=== PATIENT | male | born 1945 | race Caucasian/White ===

== ENCOUNTER 2017-07-17 21:48 | Emergency (ER) | payer MEDICARE, BC ==
[2017-07-17] MEDS ORDERED: Lactated Ringers 1,000 ML IV SCH (23:00)
[2017-07-17] MEDS ORDERED: HYDROMORPHONE IV PRN (23:00)
[2017-07-17] MEDS ORDERED: HYDROmorphone 0.5 MG/0.5 ML Syringe ONE (23:41)
[2017-07-18] MEDS ORDERED: Sodium Chloride 0.9% 10 ML Syringe FLUSH PRN (00:06)
[2017-07-18] MEDS ORDERED: Iopamidol 612 MG/ML 150 ML Bottle IV SCH (00:15)
[2017-07-18] MEDS ORDERED: Sodium Chloride 0.9% 80 ML IV SCH (00:15)
[2017-07-18] MEDS ORDERED: HYDROmorphone 0.5 MG/0.5 ML Syringe IVPUSH ONE ×2 (00:27→01:23)
--- NOTE | 2017-07-18 00:47 | EDM.PDOC ---
ED HPI GENERAL MEDICAL PROBLEM - General Chief Complaint: Abdominal Pain Stated Complaint: RI SIDE PAIN Time Seen by Provider: 07/17/17 22:35 Source of Information: Reports: Patient, Family History Limitations: Reports: No Limitations - History of Present Illness INITIAL COMMENTS - FREE TEXT/NARRATIVE: Patient was in his usual state of health until onset. Patient complains of RLQ pain for last 24h. Pain started in RLQ, positional, intermittent gradually progressing to more severe and persistent pain at this time. He reports that getting in/out of car exacerbates it, and holding still in certain recumbent positions improves pain. He denies a/n/v, had one loose, non-bloody/non- purulent/non-mucoid bowel movement shortly before ED presentation w/o relief of symptoms. His last meal was 1800 and was well tolerated. He states he could eat now if given food. He denies associated fever/chills or other constitutional symptoms. He describes the pain as sharp, and has not changed character since onset. He denies radiation/migration of pain. He denies flank pain, urgency, dysuria or other irritative voiding symptoms. He denies any pain or mass in his scrotum/testicles. ROS is otherwise non-contributory. Duration: Day(s): (1) Location: Reports: Abdomen (focal RLQ) Quality: Reports: Sharp. Denies: Ache Severity: Moderate Improves with: Reports: Rest. Denies: Eating Worsens with: Reports: Movement. 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(s) Right Pelvic Pain Score (Numeric/FACES): 7 - Related Data Allergies Allergy/AdvReac Type Severity Reaction Status Date / Time atenolol AdvReac Cough Verified 07/17/17 22:14 Home Meds: Home Meds Aspirin [Halfprin] 81 mg PO DAILY 07/17/17 [History] Cholecalciferol (Vitamin D3) [Vitamin D3] 2,000 unit PO DAILY 07/17/17 [History] Hydrochlorothiazide 25 mg PO DAILY 07/17/17 [History] Irbesartan [Avapro] 300 mg PO DAILY 07/17/17 [History] Pravastatin [Pravachol] 40 mg PO DAILY 07/17/17 [History] Past Medical History Cardiovascular History: Reports: High Cholesterol, Hypertension, Prior Cardiac Arrest Other Cardiovascular History: cardiac arrest durning shoulder surgery Musculoskeletal History: Reports: Back Pain, Chronic, Fracture Oncologic (Cancer) History: Reports: Basal Cell Carcinoma - Past Surgical History GI Surgical History: Reports: Colonoscopy Neurological Surgical History: Reports: Spinal Fusion Social & Family History - Tobacco Use Smoking Status *Q: Former Smoker Used Tobacco, but Quit: Yes Month Tobacco Last Used: 25 years ago - Caffeine Use Caffeine Use: Reports: Coffee - Recreational Drug Use Recreational Drug Use: No ED ROS GENERAL - Review of Systems Review Of Systems: See Below Constitutional: Reports: No Symptoms HEENT: Reports: No Symptoms Respiratory: Reports: No Symptoms Cardiovascular: Reports: No Symptoms Endocrine: Reports: No Symptoms GI/Abdominal: Reports: Abdominal Pain. Denies: Anorexia, Black Stool, Bloody Stool, Constipation, Melena, Mucous in Stool, Nausea, Vomiting : Denies: Discharge, Dysuria, Flank Pain, Frequency, Hematuria, Pain, Urgency Musculoskeletal: Reports: No Symptoms Skin: Reports: No Symptoms Neurological: Reports: No Symptoms Psychiatric: Reports: No Symptoms Hematologic/Lymphatic: Reports: No Symptoms Immunologic: Reports: No Symptoms ED EXAM, GI/ABD - Physical Exam Exam: See Below Text/Narrative:: Localized tenderness RLQ @ McBurney's point. Very tender to percussion, rapid palpation (hot kettle tender with slow deep palpation) w/o rebound or guarding. Minimal discomfort w/ jarring bed/heel tap, but very uncomfortable when moving/ changing positions. Negative Rosvig/obturator/psoas signs. Testicles desced bilat, non-tender. No e/o hernia. Exam Limited By: No Limitations General Appearance: Alert, WD/WN, No Apparent Distress. No: Anxious Eyes: Bilateral: Normal Appearance, EOMI Ears: Normal External Exam, Normal Canal, Hearing Grossly Normal Nose: Normal Inspection, Normal Mucosa, No Blood Throat/Mouth: Normal Inspection, Normal Lips, Normal Oropharynx, No Airway Compromise, Other (Mallampati class III, normal thryomental distance, normal mouth opening.) Head: Atraumatic, Normocephalic Neck: Normal Inspection, Supple, Non-Tender, Full Range of Motion Respiratory/Chest: No Respiratory Distress, Lungs Clear, Normal Breath Sounds, No Accessory Muscle Use, Chest Non-Tender Cardiovascular: Normal Peripheral Pulses, Regular Rate, Rhythm, No Edema, No Murmur. No: JVD GI/Abdominal Exam: Soft, No Organomegaly, No Distention, No Abnormal Bruit, No Mass, Abnormal Bowel Sounds (diminished all quadrants), Hernia (? supraumbilical abdominal wall defect). No: Normal Bowel Sounds, Non-Tender (Male) Exam: No Hernia, Normal Inspection, Cremasteric Reflex. No: Inguinal Lymphadenopathy, Penile Lesions, Scrotal Swelling, Scrotum Tenderness (L), Scrotum Tenderness (R), Suprapubic Fullness, Testicular Mass, Testicular Tenderness (L), Testicular Tenderness (R), Urethral Discharge Back Exam: Normal Inspection, Full Range of Motion. No: CVA Tenderness (R), CVA Tenderness (L) Extremities: Normal Inspection, Normal Range of Motion, Non-Tender, No Pedal Edema, Normal Capillary Refill Neurological: Alert, Oriented, CN II-XII Intact, Normal Cognition, Normal Gait, Normal Reflexes, No Motor/Sensory Deficits Psychiatric: Normal Affect, Normal Mood Skin Exam: Warm, Dry, Intact, Normal Color, No Rash. No: Jaundice, Mottled Lymphatic: No Adenopathy EKG INTERPRETATION EKG Date: 07/17/17 Time: 23:23 Rhythm: NSR ST-T: Other (flat T's) Comparison: NA - No Prior EKG EKG Interpretation Comments: NSR, non-specific changes Course - Vital Signs Last Recorded V/S: Last Vital Signs Temp 37.7 C 07/18/17 04:15 Pulse 100 07/18/17 03:15 Resp 14 07/18/17 04:15 BP 166/99 H 07/18/17 04:15 Pulse Ox 98 07/18/17 04:15 - Orders/Labs/Meds Orders: Active Orders 24 hr Category Date Time Status EKG Documentation Completion [RC] ASDIRECTED Care 07/17/17 22:59 Active EKG Documentation Completion [RC] ASDIRECTED Care 07/18/17 02:23 Active Abdomen Pelvis w Cont [CT] Stat Exams 07/18/17 00:02 Taken HYDROmorphone [Dilaudid-HP] Med 07/17/17 23:00 Active 0.5 mg IV ONETIME PRN Iopamidol [Isovue-300 (61%)] Med 07/18/17 00:15 Active 150 ml IV . DIRECTED Lactated Ringers [Ringers, Lactated] 1,000 ml Med 07/17/17 23:00 Active IV ASDIRECTED Lactated Ringers [Ringers, Lactated] 1,000 ml Med 07/18/17 02:30 Active IV ASDIRECTED Magnesium Sulfate/Water [Magnesium Sulfate 2 GM in Med 07/18/17 03:06 Active Water 50 ML] 2 gm Premix Bag 1 bag IV ONETIME Sodium Chloride 0.9% [Normal Saline] 80 ml Med 07/18/17 00:15 Active IV ASDIRECTED Sodium Chloride 0.9% [Saline Flush] Med 07/18/17 00:06 Active 10 ml FLUSH ASDIRECTED PRN EKG 12 Lead [EK] Routine Ther 07/17/17 22:57 Ordered EKG 12 Lead [EK] Routine Ther 07/18/17 02:23 Ordered Medication Orders Hydromorphone HCl (Dilaudid-Hp) 0.5 mg IV ONETIME PRN PRN Reason: Abdominal Pain Lactated Ringer's (Ringers, Lactated) 1,000 mls @ 500 mls/hr IV ASDIRECTED [facility] Last Admin: 07/17/17 23:38 Dose: 500 mls/hr Sodium Chloride (Normal Saline) 80 mls @ 3 mls/sec IV ASDIRECTED [facility] Last Admin: 07/18/17 01:10 Dose: 3 mls/sec Lactated Ringer's (Ringers, Lactated) 1,000 mls @ 150 mls/hr IV ASDIRECTED [facility] Last Admin: 07/18/17 02:58 Dose: 150 mls/hr Magnesium Sulfate 2 gm/ Premix 50 mls @ 12.5 mls/hr IV ONETIME ONE Stop: 07/18/17 07:05 Last Admin: 07/18/17 03:20 Dose: 12.5 mls/hr Iopamidol (Isovue-300 (61%)) 150 ml IV . DIRECTED [facility] Last Admin: 07/18/17 01:10 Dose: 150 ml Sodium Chloride (Saline Flush) 10 ml FLUSH ASDIRECTED PRN PRN Reason: Keep Vein Open Last Admin: 07/18/17 01:10 Dose: 10 ml Labs: Laboratory Tests 07/17/17 07/17/17 07/17/17 Range/Units 22:57 23:00 23:16 WBC 9.3 (4.5-11.0) K/uL RBC 4.52 (4.30-5.90) M/uL Hgb 14.9 (12.0-15.0) g/dL Hct 43.0 (40.0-54.0) % MCV 95 (80-98) fL MCH 33 H (27-31) pg MCHC 35 (32-36) % Plt Count 196 (150-400) K/uL Neut % (Auto) 58 (36-66) % Lymph % (Auto) 23 L (24-44) % Rock % (Auto) 16 H (2-6) % Eos % (Auto) 2 (2-4) % Baso % (Auto) 1 (0-1) % Sodium 138 L (140-148) mmol/L Potassium 3.8 (3.6-5.2) mmol/L Chloride 104 (100-108) mmol/L Carbon Dioxide 28 (21-32) mmol/L Anion Gap 9.8 (5.0-14.0) mmol/L BUN 26 H (7-18) mg/dL Creatinine 1.2 (0.8-1.3) mg/dL Est Cr Clr Drug Dosing 64.73 mL/min Estimated GFR (MDRD) 60 (>60) Glucose 111 H (74-106) mg/dL Calcium 8.6 (8.5-10.1) mg/dL Total Bilirubin 0.4 (0.2-1.0) mg/dL AST 15 (15-37) U/L ALT 27 (12-78) U/L Alkaline Phosphatase 55 (46-116) U/L Total Protein 7.3 (6.4-8.2) g/dL Albumin 3.5 (3.4-5.0) g/dL Globulin 3.8 H (2.3-3.5) g/dL Albumin/Globulin Ratio 0.9 L (1.2-2.2) Urine Color Yellow Urine Appearance Clear Urine pH 5.0 (4.5-8.0) Ur Specific [place] 1.030 (1.008-1.030) Urine Protein Negative (NEGATIVE) mg/dL Urine Glucose (UA) Normal (NEGATIVE) mg/dL Urine Ketones Negative (NEGATIVE) mg/dL Urine Occult Blood Negative (NEGATIVE) Urine Nitrite Negative (NEGAITVE) Urine Bilirubin Negative (NEGATIVE) Urine Urobilinogen Normal (NORMAL) mg/dL Ur Leukocyte Esterase Negative (NEGATIVE) Urine RBC Not seen (0-5) Urine WBC Not seen (0-5) Ur Epithelial Cells Not seen Amorphous Sediment Not seen Urine Bacteria Not seen Urine Mucus Few Meds: Medications Generic Name Dose Route Start Last Admin Trade Name Kaley PRN Reason Stop Dose Admin Hydromorphone HCl 0.5 mg 07/17/17 23:00 Dilaudid-Hp IV ONETIME PRN Abdominal Pain Lactated Ringer's 1,000 mls @ 500 mls/hr 07/17/17 23:00 07/17/17 23:38 Ringers, Lactated IV 500 mls/hr ASDIRECTED ELIZABET Administration Sodium Chloride 80 mls @ 3 mls/sec 07/18/17 00:15 07/18/17 01:10 Normal Saline IV 3 mls/sec ASDIRECTED ELIZABET Administration Lactated Ringer's 1,000 mls @ 150 mls/hr 07/18/17 02:30 07/18/17 02:58 Ringers, Lactated IV 150 mls/hr ASDIRECTED ELIZABET Administration Magnesium Sulfate 2 gm/ Premix 50 mls @ 12.5 mls/hr 07/18/17 03:06 07/18/17 03:20 IV 07/18/17 07:05 12.5 mls/hr ONETIME ONE Administration Iopamidol 150 ml 07/18/17 00:15 07/18/17 01:10 Isovue-300 (61%) IV 150 ml . DIRECTED ELIZABET Administration Sodium Chloride 10 ml 07/18/17 00:06 07/18/17 01:10 Saline Flush FLUSH 10 ml ASDIRECTED PRN Administration Keep Vein Open Discontinued Medications Generic Name Dose Route Start Last Admin Trade Name Kaley PRN Reason Stop Dose Admin Diltiazem HCl 10 mg 07/18/17 03:05 Diltiazem IVPUSH 07/18/17 03:06 ONETIME ONE Hydromorphone HCl Confirm 07/17/17 23:41 Dilaudid Administered 07/17/17 23:42 Dose 0.5 mg .ROUTE .STK-MED ONE Hydromorphone HCl 0.5 mg 07/18/17 00:27 07/18/17 00:43 Dilaudid IVPUSH 07/18/17 00:28 0.5 mg ONETIME ONE Administration Hydromorphone HCl 0.5 mg 07/18/17 01:23 07/18/17 01:43 Dilaudid IVPUSH 07/18/17 01:24 0.5 mg ONETIME ONE Administration Levofloxacin 250 mg 07/18/17 05:06 Levaquin PO 07/18/17 05:07 ONETIME ONE Metoclopramide HCl 10 mg 07/18/17 01:23 07/18/17 01:37 Reglan IVPUSH 07/18/17 01:24 10 mg ONETIME ONE Administration Metronidazole 500 mg 07/18/17 05:06 Metronidazole PO 07/18/17 05:07 ONETIME ONE Oxycodone/Acetaminophen 2 tab 07/18/17 05:05 Percocet 325-5 Mg PO 07/18/17 05:06 ONETIME ONE - Re-Assessments/Exams Free Text/Narrative Re-Assessment/Exam: 07/18/17 01:01 Repeat exam shows increased tenderness, negative heel tap, equivocal rebound. Still localized to RLQ. Free Text/Narrative Re-Assessment/Exam: 07/18/17 02:[address] patient complained of increased pain and nausea. Placed on monitor and irregular rhythm w/ rate of 90-120 noted. ECG showed new onset Afib w/ ventricular rate ~120. Additional IVF given. Blood pressure stable. Pain and nausea responded to hydromorphone and metocloperamide. No hives, SOB, or other anaphylactoid s/sx. Will observe, rate control as needed, but right now stable and will manage expectantly for spontaneous conversion. Free Text/Narrative Re-Assessment/Exam: 07/18/17 04:16 Patient has spontaneously converted in NSR. Will monitor for a few more hours and then plan on d/c home with close follow up. Departure - Departure Time of Disposition: 05:25 Disposition: Home, Self-Care 01 Condition: Good Clinical Impression: AF (paroxysmal atrial fibrillation) Diverticulitis large intestine Qualifiers: Diverticulitis bleeding: without bleeding Diverticulitis complication: without perforation or abscess Qualified Code(s): K57.32 - Diverticulitis of large intestine without perforation or abscess without bleeding Contrast media adverse reaction Qualifiers: Encounter type: initial encounter Qualified Code(s): T50.8X5A - Adverse effect of diagnostic agents, initial encounter - Discharge Information Instructions: Pain Medicine Instructions, [id number], Abdominal Pain, Adult, [id number] Referrals: PCP,None [Primary Care Provider] - Forms: ED Department Discharge Additional Instructions: Levofloxacin once a day. Metronidazole twice a day. Do not drink alcohol while on antibiotics. Do not drive while taking oxycodone. Acetaminophen (Tylenol) four times a day. Oxycodone 1-2 tablets every four hours as needed for pain. Return to emergency department for fever, vomiting, worsening pain, bloody diarrhea, or not improving in next three days. See your regular doctor in the next week for follow up. You need additional evaluation for a kidney cyst--talk to your regular doctor. - My Orders Last 24 Hours: My Active Orders 07/17/17 22:57 EKG 12 Lead [EK] Routine 07/17/17 22:59 EKG Documentation Completion [RC] ASDIRECTED 07/17/17 23:00 HYDROmorphone [Dilaudid-HP] 0.5 mg IV ONETIME PRN Lactated Ringers [Ringers, Lactated] 1,000 ml IV ASDIRECTED 07/18/17 00:02 Abdomen Pelvis w Cont [CT] Stat 07/18/17 00:06 Sodium Chloride 0.9% [Saline Flush] 10 ml FLUSH ASDIRECTED PRN 07/18/17 00:15 Iopamidol [Isovue-300 (61%)] 150 ml IV . DIRECTED Sodium Chloride 0.9% [Normal Saline] 80 ml IV ASDIRECTED 07/18/17 02:23 EKG Documentation Completion [RC] ASDIRECTED EKG 12 Lead [EK] Routine 07/18/17 02:30 Lactated Ringers [Ringers, Lactated] 1,000 ml IV ASDIRECTED 07/18/17 03:06 Magnesium Sulfate/Water [Magnesium Sulfate 2 GM in Water 50 ML] 2 gm Premix Bag 1 bag IV ONETIME - Assessment/Plan Last 24 Hours: My Active Orders 07/17/17 22:57 EKG 12 Lead [EK] Routine 07/17/17 22:59 EKG Documentation Completion [RC] ASDIRECTED 07/17/17 23:00 HYDROmorphone [Dilaudid-HP] 0.5 mg IV ONETIME PRN Lactated Ringers [Ringers, Lactated] 1,000 ml IV ASDIRECTED 07/18/17 00:02 Abdomen Pelvis w Cont [CT] Stat 07/18/17 00:06 Sodium Chloride 0.9% [Saline Flush] 10 ml FLUSH ASDIRECTED PRN 07/18/17 00:15 Iopamidol [Isovue-300 (61%)] 150 ml IV . DIRECTED Sodium Chloride 0.9% [Normal Saline] 80 ml IV ASDIRECTED 07/18/17 02:23 EKG Documentation Completion [RC] ASDIRECTED EKG 12 Lead [EK] Routine 07/18/17 02:30 Lactated Ringers [Ringers, Lactated] 1,000 ml IV ASDIRECTED 07/18/17 03:06 Magnesium Sulfate/Water [Magnesium Sulfate 2 GM in Water 50 ML] 2 gm Premix Bag 1 bag IV ONETIME Assessment:: CT reported as early diverticulitis v. epiploic appendagitis. I reviewed the CT and noted a 15mm enhancing renal cyst on inferior aspect of R kidney. On discussion with another radiologist, he concurred with finding, and he was confident in calling diverticulitis. Atrial fibrillation resolved. This is probably a non-specific adverse reaction to contrast. Plan: Patient to discuss contrast reaction with PCP and arrange for further imaging ( e.g. repeat CT in 3mo) to evaluate renal cyst. Will treat for diverticulitis w/ levofloxacin, metronidazole, with oxycodone # 30 given for analgesia (patient advised not to consume EtOH when on metronidazole, and not to drive when taking oxycodone).
[2017-07-18] MEDS ORDERED: Metoclopramide 10 MG/2 ML SDV IVPUSH ONE (01:23)
[2017-07-18] MEDS ORDERED: Lactated Ringers 1,000 ML IV SCH (02:30)
[2017-07-18] MEDS ORDERED: Diltiazem 25 MG/5 ML SDV IVPUSH ONE (03:05)
[2017-07-18] MEDS ORDERED: Magnesium Sulfate/Water 2 GM in Premix Bag 1 BAG IV ONE (03:06)
[2017-07-18] MEDS ORDERED: Acetaminophen/oxyCODONE 325-5 MG Tab PO ONE (05:05)
[2017-07-18] MEDS ORDERED: metroNIDAZOLE 250 MG Tab PO ONE (05:06)
[2017-07-18] MEDS ORDERED: Levofloxacin 250 MG Tab PO ONE (05:06)
--- NOTE | 2017-07-18 05:10 | EDM.PDOC ---
ED HPI GENERAL MEDICAL PROBLEM - General Chief Complaint: Abdominal Pain Stated Complaint: RI SIDE PAIN Time Seen by Provider: 07/17/17 22:35 Source of Information: Reports: Patient, Family History Limitations: Reports: No Limitations - History of Present Illness INITIAL COMMENTS - FREE TEXT/NARRATIVE: Patient was in his usual state of health until onset. Patient complains of RLQ pain for last 24h. Pain started in RLQ, positional, intermittent gradually progressing to more severe and persistent pain at this time. He reports that getting in/out of car exacerbates it, and holding still in certain recumbent positions improves pain. He denies a/n/v, had one loose, non-bloody/non- purulent/non-mucoid bowel movement shortly before ED presentation w/o relief of symptoms. His last meal was 1800 and was well tolerated. He states he could eat now if given food. He denies associated fever/chills or other constitutional symptoms. He describes the pain as sharp, and has not changed character since onset. He denies radiation/migration of pain. He denies flank pain, urgency, dysuria or other irritative voiding symptoms. He denies any pain or mass in his scrotum/testicles. ROS is otherwise non-contributory. Duration: Day(s): (1) Location: Reports: Abdomen (focal RLQ) Quality: Reports: Sharp. Denies: Ache Severity: Moderate Improves with: Reports: Rest. Denies: Eating Worsens with: Reports: Movement. Denies: Eating Associated Symptoms: Denies: Chest Pain, Cough, Diaphoresis, Fever/Chills, Headaches, Loss of Appetite, Malaise, Nausea/Vomiting, Rash, Shortness of Breath Treatments [employer]: Reports: Sandbag(s) Right Pelvic Pain Score (Numeric/FACES): 7 - Related Data Allergies Allergy/AdvReac Type Severity Reaction Status Date / Time atenolol AdvReac Cough Verified 07/17/17 22:14 Home Meds: Home Meds Aspirin [Halfprin] 81 mg PO DAILY 07/17/17 [History] Cholecalciferol (Vitamin D3) [Vitamin D3] 2,000 unit PO DAILY 07/17/17 [History] Hydrochlorothiazide 25 mg PO DAILY 07/17/17 [History] Irbesartan [Avapro] 300 mg PO DAILY 07/17/17 [History] Pravastatin [Pravachol] 40 mg PO DAILY 07/17/17 [History] Past Medical History Cardiovascular History: Reports: High Cholesterol, Hypertension, Prior Cardiac Arrest Other Cardiovascular History: cardiac arrest durning shoulder surgery Musculoskeletal History: Reports: Back Pain, Chronic, Fracture Oncologic (Cancer) History: Reports: Basal Cell Carcinoma - Past Surgical History GI Surgical History: Reports: Colonoscopy Neurological Surgical History: Reports: Spinal Fusion Social & Family History - Tobacco Use Smoking Status *Q: Former Smoker Used Tobacco, but Quit: Yes Month Tobacco Last Used: 25 years ago - Caffeine Use Caffeine Use: Reports: Coffee - Recreational Drug Use Recreational Drug Use: No ED ROS GENERAL - Review of Systems Review Of Systems: See Below Constitutional: Reports: No Symptoms HEENT: Reports: No Symptoms Respiratory: Reports: No Symptoms Cardiovascular: Reports: No Symptoms, Blood Pressure Problem. Denies: Chest Pain Endocrine: Reports: No Symptoms GI/Abdominal: Reports: Abdominal Pain. Denies: Anorexia, Black Stool, Bloody Stool, Decreased Appetite, Melena, Nausea, Vomiting : Denies: Discharge, Dysuria, Flank Pain, Frequency, Hematuria, Pain, Urgency Musculoskeletal: Reports: No Symptoms Skin: Reports: No Symptoms Neurological: Reports: No Symptoms Psychiatric: Reports: No Symptoms Hematologic/Lymphatic: Reports: No Symptoms Immunologic: Reports: No Symptoms ED EXAM, GI/ABD - Physical Exam Exam: See Below Course - Vital Signs Last Recorded V/S: Last Vital Signs Temp 37.7 C 07/18/17 04:15 Pulse 74 07/18/17 05:15 Resp 15 07/18/17 05:15 BP 127/81 07/18/17 05:15 Pulse Ox 96 07/18/17 05:15 - Orders/Labs/Meds Labs: Laboratory Tests 07/17/17 07/17/17 07/17/17 Range/Units 22:57 23:00 23:16 WBC 9.3 (4.5-11.0) K/uL RBC 4.52 (4.30-5.90) M/uL Hgb 14.9 (12.0-15.0) g/dL Hct 43.0 (40.0-54.0) % MCV 95 (80-98) fL MCH 33 H (27-31) pg MCHC 35 (32-36) % Plt Count 196 (150-400) K/uL Neut % (Auto) 58 (36-66) % Lymph % (Auto) 23 L (24-44) % Larue % (Auto) 16 H (2-6) % Eos % (Auto) 2 (2-4) % Baso % (Auto) 1 (0-1) % Sodium 138 L (140-148) mmol/L Potassium 3.8 (3.6-5.2) mmol/L Chloride 104 (100-108) mmol/L Carbon Dioxide 28 (21-32) mmol/L Anion Gap 9.8 (5.0-14.0) mmol/L BUN 26 H (7-18) mg/dL Creatinine 1.2 (0.8-1.3) mg/dL Est Cr Clr Drug Dosing 64.73 mL/min Estimated GFR (MDRD) 60 (>60) Glucose 111 H (74-106) mg/dL Calcium 8.6 (8.5-10.1) mg/dL Total Bilirubin 0.4 (0.2-1.0) mg/dL AST 15 (15-37) U/L ALT 27 (12-78) U/L Alkaline Phosphatase 55 (46-116) U/L Total Protein 7.3 (6.4-8.2) g/dL Albumin 3.5 (3.4-5.0) g/dL Globulin 3.8 H (2.3-3.5) g/dL Albumin/Globulin Ratio 0.9 L (1.2-2.2) Urine Color Yellow Urine Appearance Clear Urine pH 5.0 (4.5-8.0) Ur Specific [place] 1.030 (1.008-1.030) Urine Protein Negative (NEGATIVE) mg/dL Urine Glucose (UA) Normal (NEGATIVE) mg/dL Urine Ketones Negative (NEGATIVE) mg/dL Urine Occult Blood Negative (NEGATIVE) Urine Nitrite Negative (NEGAITVE) Urine Bilirubin Negative (NEGATIVE) Urine Urobilinogen Normal (NORMAL) mg/dL Ur Leukocyte Esterase Negative (NEGATIVE) Urine RBC Not seen (0-5) Urine WBC Not seen (0-5) Ur Epithelial Cells Not seen Amorphous Sediment Not seen Urine Bacteria Not seen Urine Mucus Few Meds: Medications Discontinued Medications Generic Name Dose Route Start Last Admin Trade Name Freq PRN Reason Stop Dose Admin Diltiazem HCl 10 mg 07/18/17 03:05 Diltiazem IVPUSH 07/18/17 03:06 ONETIME ONE Hydromorphone HCl 0.5 mg 07/17/17 23:00 Dilaudid-Hp IV ONETIME PRN Abdominal Pain Hydromorphone HCl Confirm 07/17/17 23:41 Dilaudid Administered 07/17/17 23:42 Dose 0.5 mg .ROUTE .STK-MED ONE Hydromorphone HCl 0.5 mg 07/18/17 00:27 07/18/17 00:43 Dilaudid IVPUSH 07/18/17 00:28 0.5 mg ONETIME ONE Administration Hydromorphone HCl 0.5 mg 07/18/17 01:23 07/18/17 01:43 Dilaudid IVPUSH 07/18/17 01:24 0.5 mg ONETIME ONE Administration Lactated Ringer's 1,000 mls @ 500 mls/hr 07/17/17 23:00 07/17/17 23:38 Ringers, Lactated IV 500 mls/hr ASDIRECTED ELIZABET Administration Sodium Chloride 80 mls @ 3 mls/sec 07/18/17 00:15 07/18/17 01:10 Normal Saline IV 3 mls/sec ASDIRECTED ELIZABET Administration Lactated Ringer's 1,000 mls @ 150 mls/hr 07/18/17 02:30 07/18/17 02:58 Ringers, Lactated IV 150 mls/hr ASDIRECTED ELIZABET Administration Magnesium Sulfate 2 gm/ Premix 50 mls @ 12.5 mls/hr 07/18/17 03:06 07/18/17 03:20 IV 07/18/17 07:05 12.5 mls/hr ONETIME ONE Administration Iopamidol 150 ml 07/18/17 00:15 07/18/17 01:10 Isovue-300 (61%) IV 150 ml . DIRECTED ELIZABET Administration Levofloxacin 250 mg 07/18/17 05:06 07/18/17 05:34 Levaquin PO 07/18/17 05:07 250 mg ONETIME ONE Administration Levofloxacin Confirm 07/18/17 05:27 Levaquin Administered 07/18/17 05:28 Dose 500 mg .ROUTE .STK-MED ONE Metoclopramide HCl 10 mg 07/18/17 01:23 07/18/17 01:37 Reglan IVPUSH 07/18/17 01:24 10 mg ONETIME ONE Administration Metronidazole 500 mg 07/18/17 05:06 07/18/17 05:34 Metronidazole PO 07/18/17 05:07 500 mg ONETIME ONE Administration Oxycodone/Acetaminophen 2 tab 07/18/17 05:05 07/18/17 05:34 Percocet 325-5 Mg PO 07/18/17 05:06 2 tab ONETIME ONE Administration Sodium Chloride 10 ml 07/18/17 00:06 07/18/17 01:10 Saline Flush FLUSH 10 ml ASDIRECTED PRN Administration Keep Vein Open - Re-Assessments/Exams Free Text/Narrative Re-Assessment/Exam: 07/18/17 05:08 Patient doing well, VSS. Stable for discharge. Departure - Departure Time of Disposition: 05:31 Disposition: Home, Self-Care 01 Clinical Impression: AF (paroxysmal atrial fibrillation) Diverticulitis large intestine Qualifiers: Diverticulitis bleeding: without bleeding Diverticulitis complication: without perforation or abscess Qualified Code(s): K57.32 - Diverticulitis of large intestine without perforation or abscess without bleeding Contrast media adverse reaction Qualifiers: Encounter type: initial encounter Qualified Code(s): T50.8X5A - Adverse effect of diagnostic agents, initial encounter - Discharge Information Instructions: Abdominal Pain, Adult, [id number], Pain Medicine Instructions, [id number] Referrals: PCP,None [Primary Care Provider] - Forms: ED Department Discharge Additional Instructions: Levofloxacin once a day. Metronidazole twice a day. Do not drink alcohol while on antibiotics. Do not drive while taking oxycodone. Acetaminophen (Tylenol) four times a day. Oxycodone 1-2 tablets every four hours as needed for pain. Return to emergency department for fever, vomiting, worsening pain, bloody diarrhea, or not improving in next three days. See your regular doctor in the next week for follow up. You need additional evaluation for a kidney cyst--talk to your regular doctor. - Problem List Review Problem List Initiated/Reviewed/Updated: Yes
[2017-07-18] MEDS ORDERED: Levofloxacin 500 MG Tab ONE (05:27)
[2017-07-18 06:04] VITALS: BP 127/81
== END 2017-07-18 06:05 | disposition home or self-care (01) ==
LOC: JP.ED 21:48
DX: I48.0 Paroxysmal atrial fibrillation (principal); T50.8X5A Adverse effect of diagnostic agents, initial encounter; K57.32 Diverticulitis of large intestine without perforation or abscess without bleeding; I10 Essential (primary) hypertension; E78.00 Pure hypercholesterolemia, unspecified; Z85.828 Personal history of other malignant neoplasm of skin; Z98.1 Arthrodesis status; Z87.891 Personal history of nicotine dependence; Z79.82 Long term (current) use of aspirin; Z79.899 Other long term (current) drug therapy; Z88.8 Allergy status to other drugs, medicaments and biological substances
CPT/HCPCS: 36415; 74177; 80053; 81001; 85025; 93005; 93010; 96361; 96365; 96366; 96375; 96376; 99285; A9270; J1170; J2765; J3475; J7030; J7050; J7120; 99284; J3490

== ENCOUNTER 2021-10-03 13:31 | Inpatient (IN) | payer MEDICARE, BC ==
[2021-10-03] MEDS ORDERED: Sodium Chloride 0.9% 10 ML Syringe FLUSH PRN (14:39)
[2021-10-03] MEDS ORDERED: Sodium Chloride 0.9% 1,000 ML IV ONE (14:39)
[2021-10-03] MEDS ORDERED: cefTRIAXone 1 GM in Sodium Chloride 0.9% 50 ML IV ONE (14:39)
--- NOTE | 2021-10-03 15:11 | CR ---
CHEST: Portable 10/03/2021 at 3:09 PM CLINICAL HISTORY:Sepsis COMPARISON:None FINDINGS: Patient has a Rjjhca-z-Ukdt catheter from the right jugular approach. The tip is in the lower superior vena cava. There are no effusions. Impression: No acute pulmonary process Bmnpax-t-Iavv catheter in place
--- NOTE | 2021-10-03 15:39 | EDM.PDOC ---
ED HPI GENERAL MEDICAL PROBLEM - General Chief Complaint: Fever Stated Complaint: at infusion clinic, came down with chills/fever Time Seen by Provider: 10/03/21 14:37 Source of Information: Reports: Patient, Family History Limitations: Reports: No Limitations - History of Present Illness INITIAL COMMENTS - FREE TEXT/NARRATIVE: Charly is a 76-year-old male presenting to the ER from the infusion center for evaluation of acute onset of fever, chills, hypotension and tachycardia likely due to sepsis. The patient is currently undergoing IV fluids in the infusion center for ongoing issues with diarrhea secondary to his pancreatic cancer and chemotherapy. The patient started to develop shaking rigors and chills with a fever in the infusion center today. He has been vaccinated with the [employer] Covid vaccine back in December of this year. He has not had the booster at this time. His last round of chemotherapy was last Wednesday (9 days ago). He has had diminished appetite and an 85 pound weight loss since initiating therapy for his pancreatic cancer. He has had significant diarrhea and nausea but no vomiting. He has had a significantly diminished appetite but did manage to eat a small amount of oatmeal today. He appears cachectic and ill. He is quite warm to the touch. On ER intake today he triggers for sepsis so we will initiate antibiotics with vancomycin and cefepime while pursuing the work-up. - Related Data Allergies Allergy/AdvReac Type Severity Reaction Status Date / Time atenolol AdvReac Cough Verified 07/17/17 22:14 Home Meds: Home Meds Aspirin [Halfprin] 81 mg PO DAILY 07/17/17 [History] Cholecalciferol (Vitamin D3) [Vitamin D3] 2,000 unit PO DAILY 07/17/17 [History] Hydrochlorothiazide 25 mg PO DAILY 07/17/17 [History] Irbesartan [Avapro] 300 mg PO DAILY 07/17/17 [History] Pravastatin [Pravachol] 40 mg PO DAILY 07/17/17 [History] Past Medical History Cardiovascular History: Reports: High Cholesterol, Hypertension, Prior Cardiac Arrest Other Cardiovascular History: cardiac arrest durning shoulder surgery Musculoskeletal History: Reports: Back Pain, Chronic, Fracture Endocrine/Metabolic History: Reports: Diabetes, Type II Oncologic (Cancer) History: Reports: Basal Cell Carcinoma, Pancreatic - Past Surgical History GI Surgical History: Reports: Colonoscopy Neurological Surgical History: Reports: Spinal Fusion Social & Family History - Tobacco Use Tobacco Use Status *Q: Former Tobacco User Years of Tobacco use: 25 Used Tobacco, but Quit: Yes Month/Year Tobacco Last Used: 30 - Caffeine Use Caffeine Use: Reports: Coffee - Recreational Drug Use Recreational Drug Use: No ED ROS GENERAL - Review of Systems Review Of Systems: See Below Constitutional: Reports: Fever, Chills, Malaise, Weakness, Decreased Appetite, Weight Loss HEENT: Reports: No Symptoms Respiratory: Reports: Shortness of Breath. Denies: Cough Cardiovascular: Reports: No Symptoms Endocrine: Reports: Fatigue GI/Abdominal: Reports: Diarrhea, Decreased Appetite, Nausea Musculoskeletal: Reports: No Symptoms Skin: Reports: No Symptoms Neurological: Reports: Dizziness Psychiatric: Reports: No Symptoms Hematologic/Lymphatic: Reports: No Symptoms Immunologic: Reports: No Symptoms ED EXAM, SEPSIS - Physical Exam Exam: See Below Exam Limited By: No Limitations General Appearance: Alert, Anxious, Mild Distress, Cachetic Eye Exam: Bilateral Eye: EOMI, PERRL Throat/Mouth: Normal Inspection, Normal Oropharynx, Normal Voice, No Airway Compromise Head: Atraumatic, Normocephalic Neck: Normal Inspection Respiratory/Chest: No Respiratory Distress, Lungs Clear, Normal Breath Sounds Cardiovascular: Normal Peripheral Pulses, Regular Rate, Rhythm, Tachycardia Peripheral Pulses: 2+: Radial (L), Radial (R) GI/Abdominal Exam: Normal Bowel Sounds, Soft, Abnormal Bowel Sounds (Decreased bowel sounds). No: Guarding, Rebound Extremities: Normal Inspection, Normal Capillary Refill Neurological: Alert, Oriented, Normal Cognition, No Motor/Sensory Deficits Psychiatric: Normal Affect Skin: Warm, Dry, Normal Color #1 Interpretation EKG Date: 10/03/21 Time: 14:54 Rhythm: NSR Rate (Beats/Min): 93 [place]: Normal P-Wave: Present QRS: Normal (Low voltage in the limb leads) ST-T: Normal QT: Normal Comparison: No Change (No change when compared to previous EKG on 07/18/2017.) Course - Vital Signs Last Recorded V/S: Last Vital Signs Temp 37.8 C 10/03/21 13:54 Pulse 89 10/03/21 16:47 Resp 16 10/03/21 13:54 BP 122/62 10/03/21 16:47 Pulse Ox 99 10/03/21 16:47 - Orders/Labs/Meds Orders: Active Orders 24 hr Category Date Time Status Blood Pressure Mgt: Sepsis [RC] Q15MX2 Care 10/03/21 14:39 Active Cardiac Monitoring [RC] CONTINUOUS Care 10/03/21 14:40 Active Pulse Oximetry [RC] ROUTINE Care 10/03/21 14:40 Active CULTURE BLOOD [BC] Urgent Lab 10/03/21 15:00 Received CULTURE BLOOD [BC] Urgent Lab 10/03/21 15:10 Received Sodium Chloride 0.9% [Saline Flush] Med 10/03/21 14:39 Active 10 ml FLUSH ASDIRECTED PRN Blood Culture x2 Reflex Set [OM.PC] Urgent Oth 10/03/21 14:39 Ordered Isolation [COMM] Stat Oth 10/03/21 14:42 Ordered Saline Lock Insert [OM.PC] Stat Oth 10/03/21 14:39 Ordered Severe Sepsis Onset Time [OM.PC] Stat Oth 10/03/21 14:39 Ordered EKG 12 Lead [EK] Stat Ther 10/03/21 14:39 Ordered Medication Orders Sodium Chloride (Sodium Chloride 0.9% 10 Ml Syringe) 10 ml FLUSH ASDIRECTED PRN PRN Reason: Keep Vein Open Labs: Laboratory Tests 10/03/21 10/03/21 10/03/21 Range/Units 15:00 15:00 15:23 WBC (4.5-11.0) K/uL RBC (4.30-5.90) M/uL Hgb (12.0-15.0) g/dL Hct (40.0-54.0) % MCV (80-98) fL MCH (27-31) pg MCHC (32-36) % Plt Count (150-400) K/uL Add Manual Diff Neutrophils % (Manual) (36-66) % Band Neutrophils % (5-11) % Lymphocytes % (Manual) (24-44) % Monocytes % (Manual) (2-6) % Atypical Lymphocytes Hypochromasia Anisocytosis Microcytosis Macrocytosis Sodium 134 L (140-148) mmol/L Potassium 4.1 (3.6-5.2) mmol/L Chloride 102 (100-108) mmol/L Carbon Dioxide 24 (21-32) mmol/L Anion Gap 12.1 (5.0-14.0) mmol/L BUN 14 (7-18) mg/dL Creatinine 0.8 (0.8-1.3) mg/dL Est Cr Clr Drug Dosing 64.97 mL/min Estimated GFR (MDRD) > 60 (>60) Glucose 109 H (74-106) mg/dL Lactic Acid 1.7 (0.4-2.0) mmol/L Calcium 7.9 L (8.5-10.1) mg/dL Total Bilirubin 0.6 (0.2-1.0) mg/dL AST 12 L (15-37) U/L ALT 13 (12-78) U/L Alkaline Phosphatase 75 (46-116) U/L C-Reactive Protein 9.79 H (0.0-0.3) mg/dL Total Protein 5.4 L (6.4-8.2) g/dL Albumin 2.1 L (3.4-5.0) g/dL Globulin 3.3 (2.3-3.5) g/dL Albumin/Globulin Ratio 0.6 L (1.2-2.2) Urine Color Yellow (YELLOW) Urine Appearance Clear (CLEAR) Urine pH 5.0 (5.0-8.0) Ur Specific [place] 1.025 (1.008-1.030) Urine Protein Negative (NEGATIVE) mg/dL Urine Glucose (UA) Negative (NEGATIVE) mg/dL Urine Ketones 15 H (NEGATIVE) mg/dL Urine Occult Blood Negative (NEGATIVE) Urine Nitrite Negative (NEGATIVE) Urine Bilirubin Negative (NEGATIVE) Urine Urobilinogen 0.2 (0.2-1.0) EU/dL Ur Leukocyte Esterase Negative (NEGATIVE) Urine RBC 0-5 (0-5) Urine WBC 0-5 (0-5) Ur Epithelial Cells Rare Amorphous Sediment Few Urine Bacteria Occasional Urine Mucus Many Urinalysis Comment See note Influenza Type A RNA (NEGATIVE) RSV RNA (INAAT) (NEGATIVE) Influenza Type B RNA (NEGATIVE) SARS-CoV-2 RNA (KRISSY) (NEGATIVE) 10/03/21 10/03/21 Range/Units 15:23 15:43 WBC 0.7 L* (4.5-11.0) K/uL RBC 2.91 L (4.30-5.90) M/uL Hgb 8.5 L D (12.0-15.0) g/dL Hct 26.4 L (40.0-54.0) % MCV 91 (80-98) fL MCH 29 (27-31) pg MCHC 32 (32-36) % Plt Count 31 L (150-400) K/uL Add Manual Diff Yes Neutrophils % (Manual) 4 L (36-66) % Band Neutrophils % 12 H (5-11) % Lymphocytes % (Manual) 68 H (24-44) % Monocytes % (Manual) 16 H (2-6) % Atypical Lymphocytes Few Hypochromasia Moderate H Anisocytosis Moderate H Microcytosis Few Macrocytosis Few Sodium (140-148) mmol/L Potassium (3.6-5.2) mmol/L Chloride (100-108) mmol/L Carbon Dioxide (21-32) mmol/L Anion Gap (5.0-14.0) mmol/L BUN (7-18) mg/dL Creatinine (0.8-1.3) mg/dL Est Cr Clr Drug Dosing mL/min Estimated GFR (MDRD) (>60) Glucose (74-106) mg/dL Lactic Acid (0.4-2.0) mmol/L Calcium (8.5-10.1) mg/dL Total Bilirubin (0.2-1.0) mg/dL AST (15-37) U/L ALT (12-78) U/L Alkaline Phosphatase (46-116) U/L C-Reactive Protein (0.0-0.3) mg/dL Total Protein (6.4-8.2) g/dL Albumin (3.4-5.0) g/dL Globulin (2.3-3.5) g/dL Albumin/Globulin Ratio (1.2-2.2) Urine Color (YELLOW) Urine Appearance (CLEAR) Urine pH (5.0-8.0) Ur Specific [place] (1.008-1.030) Urine Protein (NEGATIVE) mg/dL Urine Glucose (UA) (NEGATIVE) mg/dL Urine Ketones (NEGATIVE) mg/dL Urine Occult Blood (NEGATIVE) Urine Nitrite (NEGATIVE) Urine Bilirubin (NEGATIVE) Urine Urobilinogen (0.2-1.0) EU/dL Ur Leukocyte Esterase (NEGATIVE) Urine RBC (0-5) Urine WBC (0-5) Ur Epithelial Cells Amorphous Sediment Urine Bacteria Urine Mucus Urinalysis Comment Influenza Type A RNA Negative (NEGATIVE) RSV RNA (INAAT) Negative (NEGATIVE) Influenza Type B RNA Negative (NEGATIVE) SARS-CoV-2 RNA (KRISSY) Negative (NEGATIVE) Meds: Medications Generic Name Dose Route Start Last Admin Trade Name Fregwendolyn PRN Reason Stop Dose Admin Sodium Chloride 10 ml 10/03/21 14:39 Sodium Chloride 0.9% 10 Ml Syringe FLUSH ASDIRECTED PRN Keep Vein Open Discontinued Medications Generic Name Dose Route Start Last Admin Trade Name Freq PRN Reason Stop Dose Admin Vancomycin HCl 1 gm/ Sodium 250 mls @ 167 mls/hr 10/03/21 14:39 10/03/21 15:20 Chloride IV 10/03/21 16:08 167 mls/hr STAT ONE Administration Ceftriaxone Sodium 1 gm/ 50 mls @ 100 mls/hr 10/03/21 14:39 10/03/21 16:59 Sodium Chloride IV 10/03/21 15:08 100 mls/hr STAT ONE Administration Sodium Chloride 1,000 mls @ 999 mls/hr 10/03/21 14:39 10/03/21 15:22 Normal Saline IV 10/03/21 15:39 999 mls/hr BOLUS ONE Administration Protocol - Re-Assessments/Exams Free Text/Narrative Re-Assessment/Exam: 10/03/21 17:30 I reviewed the patient's labs with some troubling findings. His CBC shows a leukocyte count of 0.7 with only 4% neutrophils and 12% bands which is significant for neutropenic fever. He is also pancytopenic with a hemoglobin of 8.5 and a platelet count of 31,000. His comprehensive metabolic panel shows a sodium of 134, potassium 4.1, chloride of 102, bicarbonate of 24, BUN of 14 with a creatinine of 0.8 and a glucose of 109. Patient's calcium is low at 7.9. His lactate is 1.7. The patient has received blood cultures. His C-reactive protein is 9.79. As he triggered sepsis on his presentation, we initiated antibiotics with vancomycin and cefepime. This was started after he had blood cultures obtained. The patient is negative for Covid, RSV, and influenza. As the patient is having neutropenic fever, he is going to need to be admitted for reverse isolation and continued antibiotic coverage. I discussed the case with Dr. Nur who will arrange for admission of the patient to the [facility] floor. Departure - Departure Time of Disposition: 17:32 Disposition: Admitted As Inpatient 68 Clinical Impression: Neutropenic fever, Pancytopenia due to chemotherapy Pancreatic malignant neoplasm Qualifiers: Pancreatic malignancy location: head of pancreas Qualified Code(s): C25.0 - Malignant neoplasm of head of pancreas - Discharge Information Referrals: PCP,Not In Area [Primary Care Provider] - Forms: ED Department Discharge Sepsis Event Note (ED) - Evaluation Sepsis Screening Result: Possible Sepsis Risk - Focused Exam Vital Signs: Vital Signs Temp Pulse Resp BP Pulse Ox 10/03/21 16:47 89 122/62 99 10/03/21 15:45 90 109/60 98 10/03/21 14:54 112/69 10/03/21 14:39 105/69 10/03/21 13:54 37.8 C 110 H 16 148/72 H 98 - Problem List & Annotations (1) Neutropenic fever SNOMED Code(s): 372152500 Code(s): D70.9 - NEUTROPENIA, UNSPECIFIED; R50.81 - FEVER PRESENTING WITH CONDITIONS CLASSIFIED ELSEWHERE Status: Acute Priority: High Current Visit: Yes (2) Pancreatic malignant neoplasm SNOMED Code(s): 228850189 Code(s): C25.9 - MALIGNANT NEOPLASM OF PANCREAS, UNSPECIFIED Status: Acute Priority: High Current Visit: Yes Qualifiers: Pancreatic malignancy location: head of pancreas Qualified Code(s): C25.0 - Malignant neoplasm of head of pancreas (3) Pancytopenia due to chemotherapy SNOMED Code(s): 0279730, 029948052 Code(s): D61.810 - ANTINEOPLASTIC CHEMOTHERAPY INDUCED PANCYTOPENIA Status: Acute Priority: High Current Visit: Yes - Problem List Review Problem List Initiated/Reviewed/Updated: Yes - My Orders Last 24 Hours: My Active Orders 10/03/21 14:39 Blood Pressure Mgt: Sepsis [RC] Q15MX2 Sodium Chloride 0.9% [Saline Flush] 10 ml FLUSH ASDIRECTED PRN Blood Culture x2 Reflex Set [OM.PC] Urgent Saline Lock Insert [OM.PC] Stat Severe Sepsis Onset Time [OM.PC] Stat EKG 12 Lead [EK] Stat 10/03/21 14:40 Cardiac Monitoring [RC] CONTINUOUS Pulse Oximetry [RC] ROUTINE 10/03/21 14:42 Isolation [COMM] Stat 10/03/21 15:00 CULTURE BLOOD [BC] Urgent 10/03/21 15:10 CULTURE BLOOD [BC] Urgent - Assessment/Plan Last 24 Hours: My Active Orders 10/03/21 14:39 Blood Pressure Mgt: Sepsis [RC] Q15MX2 Sodium Chloride 0.9% [Saline Flush] 10 ml FLUSH ASDIRECTED PRN Blood Culture x2 Reflex Set [OM.PC] Urgent Saline Lock Insert [OM.PC] Stat Severe Sepsis Onset Time [OM.PC] Stat EKG 12 Lead [EK] Stat 10/03/21 14:40 Cardiac Monitoring [RC] CONTINUOUS Pulse Oximetry [RC] ROUTINE 10/03/21 14:42 Isolation [COMM] Stat 10/03/21 15:00 CULTURE BLOOD [BC] Urgent 10/03/21 15:10 CULTURE BLOOD [BC] Urgent
[2021-10-03 16:17] LABS: CORONAVIRUS COVID-19 NAA NEGATIVE (NEGATIVE)
--- NOTE | 2021-10-03 18:39 | PCM.HP.2 ---
H&P History of Present Illness - General Date of Service: 10/03/21 Admit Problem/Dx: Admission Diagnosis/Problem Admission Diagnosis/Problem Neutropenic disorder Source of Information: Patient, Family, Provider History Limitations: Reports: No Limitations - History of Present Illness Initial Comments - Free Text/Narative: CC: I thought i better get checked out HPI: Charly presented initially to the infusion center with concerns about dehydration. He was sent to the emergency room for evaluation after a fever was noted. He reports that he last had chemotherapy for his pancreatic cancer about 9 days ago. Usually after chemotherapy he has difficulty with increased fat igue, poor appetite and some diarrhea. The first few days were as expected but over the last 3 to 4 days he has had increasing fatigue and has been sleeping most of the day. His appetite has been worse than usual. He feels weak but is able to get around the house slowly. He has had a little more diarrhea than usual with multiple watery bowel movements per day. He does get mild achy abdominal pain after he eats. He does not have pain if he does not eat. He has not really tried anything to make it better. He is not aware of any fevers or chills. When he had his fever today in the infusion center he felt a little shaky. He has not had any obvious sick contacts. No recent antibiotics. Work-up in the emergency room revealed severe neutropenia. Chest x-ray was clear and urinalysis was clear. He has received broad-spectrum antibiotics. He will be admitted for management of neutropenic fever. - Related Data Allergies/Adverse Reactions: Allergies Allergy/AdvReac Type Severity Reaction Status Date / Time atenolol AdvReac Cough Verified 07/17/17 22:14 Home Medications: Home Meds Aspirin [Halfprin] 81 mg PO DAILY 07/17/17 [History] Cholecalciferol (Vitamin D3) [Vitamin D3] 2,000 unit PO DAILY 07/17/17 [History] Hydrochlorothiazide 25 mg PO DAILY 07/17/17 [History] Irbesartan [Avapro] 300 mg PO DAILY 07/17/17 [History] Pravastatin [Pravachol] 40 mg PO DAILY 07/17/17 [History] Amylase/Lipase/Protease [Creon DR 24,000 Unit] 3 tab PO TIDAC 10/03/21 [History] Diphenoxylate HCl/Atropine [Lomotil] 1 tab PO QID 10/03/21 [History] Insulin Detemir [Levemir Flextouch] 15 units SUBCUT DAILY 10/03/21 [History] Loperamide [Imodium] 2 mg PO Q4H PRN 10/03/21 [History] Potassium Chloride [Klor-Con M20] 20 meq PO DAILY 10/03/21 [History] dronabinoL [Dronabinol] 5 mg PO BIDAC 10/03/21 [History] Past Medical History Cardiovascular History: Reports: High Cholesterol, Hypertension, Prior Cardiac Arrest Other Cardiovascular History: cardiac arrest durning shoulder surgery Musculoskeletal History: Reports: Back Pain, Chronic, Fracture Endocrine/Metabolic History: Reports: Diabetes, Type II Oncologic (Cancer) History: Reports: Basal Cell Carcinoma, Pancreatic - Past Surgical History GI Surgical History: Reports: Colonoscopy Neurological Surgical History: Reports: Spinal Fusion Social & Family History - Family History Oncologic: Denies: Pancreatic - Tobacco Use Tobacco Use Status *Q: Former Tobacco User Years of Tobacco use: 25 Used Tobacco, but Quit: Yes Month/Year Tobacco Last Used: 30 - Caffeine Use Caffeine Use: Reports: Coffee - Alcohol Use Alcohol Use History: No Alcohol Use in Last Twelve Months: No - Recreational Drug Use Recreational Drug Use: No H&P Review of Systems - Review of Systems: Review Of Systems: See Below Free Text/Narrative: A complete 12 point review of systems was obtained. Pertinent positives and negatives are noted in the history of present illness. All other systems were reviewed and were negative except as noted. Exam - Exam Exam: See Below - Vital Signs Vital Signs: Last Vital Signs Temp 37.8 C 10/03/21 13:54 Pulse 83 10/03/21 18:01 Resp 16 10/03/21 18:01 BP 126/68 10/03/21 18:01 Pulse Ox 93 L 10/03/21 18:01 Weight: 56.699 kg - Exam Quality Assessment: No: Supplemental Oxygen General: Alert, Oriented, Cooperative, Other (thin, chronically ill appearing ). No: Mild Distress HEENT: Conjunctiva Clear, Pupils Equal. No: Mucosa Moist & [place] (dry), Scleral Icterus Neck: Supple, Trachea Midline. No: Lymphadenopathy Lungs: Clear to Auscultation, Normal Respiratory Effort Cardiovascular: Regular Rate, Regular Rhythm. No: Systolic Murmur GI/Abdominal Exam: Normal Bowel Sounds, Soft, Non-Tender, No Distention Extremities: No Pedal Edema. No: Joint Swelling, Increased Warmth Skin: Warm, Dry, Other (port right upper chest with no erythema ) Neuro Extensive - Mental Status: Alert, Oriented x3, Nl Response to Commands Neuro Extensive - Motor, Sensory, Reflexes: No: Dysarthria, Abnormal Motor, Tremor Psychiatric: Alert, Normal Affect - Patient Data Lab Results Last 24 hrs: Laboratory Results - last 24 hr 10/03/21 10/03/21 10/03/21 Range/Units 15:00 15:00 15:23 WBC (4.5-11.0) K/uL RBC (4.30-5.90) M/uL Hgb (12.0-15.0) g/dL Hct (40.0-54.0) % MCV (80-98) fL MCH (27-31) pg MCHC (32-36) % Plt Count (150-400) K/uL Add Manual Diff Neutrophils % (Manual) (36-66) % Band Neutrophils % (5-11) % Lymphocytes % (Manual) (24-44) % Monocytes % (Manual) (2-6) % Atypical Lymphocytes Hypochromasia Anisocytosis Microcytosis Macrocytosis Sodium 134 L (140-148) mmol/L Potassium 4.1 (3.6-5.2) mmol/L Chloride 102 (100-108) mmol/L Carbon Dioxide 24 (21-32) mmol/L Anion Gap 12.1 (5.0-14.0) mmol/L BUN 14 (7-18) mg/dL Creatinine 0.8 (0.8-1.3) mg/dL Est Cr Clr Drug Dosing 64.97 mL/min Estimated GFR (MDRD) > 60 (>60) Glucose 109 H (74-106) mg/dL Lactic Acid 1.7 (0.4-2.0) mmol/L Calcium 7.9 L (8.5-10.1) mg/dL Total Bilirubin 0.6 (0.2-1.0) mg/dL AST 12 L (15-37) U/L ALT 13 (12-78) U/L Alkaline Phosphatase 75 (46-116) U/L C-Reactive Protein 9.79 H (0.0-0.3) mg/dL Total Protein 5.4 L (6.4-8.2) g/dL Albumin 2.1 L (3.4-5.0) g/dL Globulin 3.3 (2.3-3.5) g/dL Albumin/Globulin Ratio 0.6 L (1.2-2.2) Urine Color Yellow (YELLOW) Urine Appearance Clear (CLEAR) Urine pH 5.0 (5.0-8.0) Ur Specific [place] 1.025 (1.008-1.030) Urine Protein Negative (NEGATIVE) mg/dL Urine Glucose (UA) Negative (NEGATIVE) mg/dL Urine Ketones 15 H (NEGATIVE) mg/dL Urine Occult Blood Negative (NEGATIVE) Urine Nitrite Negative (NEGATIVE) Urine Bilirubin Negative (NEGATIVE) Urine Urobilinogen 0.2 (0.2-1.0) EU/dL Ur Leukocyte Esterase Negative (NEGATIVE) Urine RBC 0-5 (0-5) Urine WBC 0-5 (0-5) Ur Epithelial Cells Rare Amorphous Sediment Few Urine Bacteria Occasional Urine Mucus Many Urinalysis Comment See note Influenza Type A RNA (NEGATIVE) RSV RNA (INAAT) (NEGATIVE) Influenza Type B RNA (NEGATIVE) SARS-CoV-2 RNA (KRISSY) (NEGATIVE) 10/03/21 10/03/21 Range/Units 15:23 15:43 WBC 0.7 L* (4.5-11.0) K/uL RBC 2.91 L (4.30-5.90) M/uL Hgb 8.5 L D (12.0-15.0) g/dL Hct 26.4 L (40.0-54.0) % MCV 91 (80-98) fL MCH 29 (27-31) pg MCHC 32 (32-36) % Plt Count 31 L (150-400) K/uL Add Manual Diff Yes Neutrophils % (Manual) 4 L (36-66) % Band Neutrophils % 12 H (5-11) % Lymphocytes % (Manual) 68 H (24-44) % Monocytes % (Manual) 16 H (2-6) % Atypical Lymphocytes Few Hypochromasia Moderate H Anisocytosis Moderate H Microcytosis Few Macrocytosis Few Sodium (140-148) mmol/L Potassium (3.6-5.2) mmol/L Chloride (100-108) mmol/L Carbon Dioxide (21-32) mmol/L Anion Gap (5.0-14.0) mmol/L BUN (7-18) mg/dL Creatinine (0.8-1.3) mg/dL Est Cr Clr Drug Dosing mL/min Estimated GFR (MDRD) (>60) Glucose (74-106) mg/dL Lactic Acid (0.4-2.0) mmol/L Calcium (8.5-10.1) mg/dL Total Bilirubin (0.2-1.0) mg/dL AST (15-37) U/L ALT (12-78) U/L Alkaline Phosphatase (46-116) U/L C-Reactive Protein (0.0-0.3) mg/dL Total Protein (6.4-8.2) g/dL Albumin (3.4-5.0) g/dL Globulin (2.3-3.5) g/dL Albumin/Globulin Ratio (1.2-2.2) Urine Color (YELLOW) Urine Appearance (CLEAR) Urine pH (5.0-8.0) Ur Specific [place] (1.008-1.030) Urine Protein (NEGATIVE) mg/dL Urine Glucose (UA) (NEGATIVE) mg/dL Urine Ketones (NEGATIVE) mg/dL Urine Occult Blood (NEGATIVE) Urine Nitrite (NEGATIVE) Urine Bilirubin (NEGATIVE) Urine Urobilinogen (0.2-1.0) EU/dL Ur Leukocyte Esterase (NEGATIVE) Urine RBC (0-5) Urine WBC (0-5) Ur Epithelial Cells Amorphous Sediment Urine Bacteria Urine Mucus Urinalysis Comment Influenza Type A RNA Negative (NEGATIVE) RSV RNA (INAAT) Negative (NEGATIVE) Influenza Type B RNA Negative (NEGATIVE) SARS-CoV-2 RNA (KRISSY) Negative (NEGATIVE) Result Diagrams: 10/03/21 15:43 10/03/21 15:00 Imaging Impressions Last 24 hrs: Chest [id number] personally reviewed-no evidence for mass, infiltrate or effusion. Heart size is normal. He does have a Port-A-Cath in the right upper chest. #1 Interpretation EKG Date: 10/03/21 Rhythm: NSR Rate (Beats/Min): 93 [place]: Normal P-Wave: Present QRS: Normal ST-T: Normal QT: Normal HI/PQ Interval: normal Comparison: NA - No Prior EKG EKG Interpretation Comments: this image was personally reviewed Sepsis Event Note - Evaluation Sepsis Screening Result: Possible Sepsis Risk - Focused Exam Vital Signs: Vital Signs Temp Pulse Resp BP Pulse Ox 10/03/21 18:01 83 16 126/68 93 L 10/03/21 16:47 89 122/62 99 10/03/21 15:45 90 109/60 98 10/03/21 14:54 112/69 10/03/21 14:39 105/69 10/03/21 13:54 37.8 C 110 H 16 148/72 H 98 *Q Meaningful Use (ADM) - VTE *Q VTE Pharmacological Contraindications *Q: Thrombocytopenia - VTE Risk Assess *Q Each Risk Factor Represents 1 Point: None Total Score 1 Point Risk Factors: 0 Each Risk Factor Represents 2 Points: Age 60 - 74 Years, Malignancy (present or previous) Total Score 2 Point Risk Factors: 4 Each Risk Factor Represents 3 Points: None Total Score 3 Point Risk Factors: 0 Each Risk Factor Represents 5 Points: None Total Score 5 Point Risk Factors: 0 Venous Thromboembolism Risk Factor Score *Q: 4 - Problem List (1) Neutropenic fever SNOMED Code(s): 948739685 ICD Code: D70.9 - NEUTROPENIA, UNSPECIFIED; R50.81 - FEVER PRESENTING WITH CONDITIONS CLASSIFIED ELSEWHERE Status: Acute Priority: High Current Visit: Yes (2) Pancreatic malignant neoplasm SNOMED Code(s): 539605784 ICD Code: C25.9 - MALIGNANT NEOPLASM OF PANCREAS, UNSPECIFIED Status: Acute Priority: High Current Visit: Yes Qualifiers: Pancreatic malignancy location: head of pancreas Qualified Code(s): C25.0 - Malignant neoplasm of head of pancreas (3) Pancytopenia due to chemotherapy SNOMED Code(s): 7952685, 740737322 ICD Code: D61.810 - ANTINEOPLASTIC CHEMOTHERAPY INDUCED PANCYTOPENIA Status: Acute Priority: High Current Visit: Yes (4) Insulin dependent diabetes mellitus SNOMED Code(s): 84739710 ICD Code: [id number] - Status: Chronic Current Visit: Yes Problem List Initiated/Reviewed/Updated: Yes Orders Last 24hrs: Active Orders 24 hr Category Date Time Status Patient Status Manage Transfer [TRANSFER] Routine ADT 10/03/21 18:28 Ordered Blood Pressure Mgt: Sepsis [RC] [id number] Care 10/03/21 14:39 Active Cardiac Monitoring [RC] CONTINUOUS Care 10/03/21 14:40 Active Pulse Oximetry [RC] ROUTINE Care 10/03/21 14:40 Active CULTURE BLOOD [BC] Urgent Lab 10/03/21 15:00 Received CULTURE BLOOD [BC] Urgent Lab 10/03/21 15:10 Received Sodium Chloride 0.9% [Saline Flush] Med 10/03/21 14:39 Active 10 ml FLUSH ASDIRECTED PRN Blood Culture x2 Reflex Set [OM.PC] Urgent Oth 10/03/21 14:39 Ordered Isolation [COMM] Stat Oth 10/03/21 14:42 Ordered Saline Lock Insert [OM.PC] Stat Oth 10/03/21 14:39 Ordered Severe Sepsis Onset Time [OM.PC] Stat Oth 10/03/21 14:39 Ordered Resuscitation Status Routine Resus Stat 10/03/21 18:29 Ordered EKG 12 Lead [EK] Stat Ther 10/03/21 14:39 Ordered Medication Orders Sodium Chloride (Sodium Chloride 0.9% 10 Ml Syringe) 10 ml FLUSH ASDIRECTED PRN PRN Reason: Keep Vein Open Assessment/Plan Comment:: ASSESSMENT AND PLAN - Neutropenic fever-most recent chemotherapy was 9 days ago. He has pancytopenia related to chemotherapy. Most likely source of bacteremia would be gastrointestinal. Lungs are clear, skin exam is benign and urine is clear. He has received broad-spectrum antibiotics and cultures have been obtained. -Cefepime and vancomycin -IV fluids for hydration -Follow-up cultures -Discussed case with oncology tomorrow -Symptomatic management of pain, nausea and diarrhea -Repeat white blood cell count with differential in the morning Pancreatic cancer-currently receiving chemotherapy with the goal of shrinking the mass enough so he can have surgery. -Outpatient follow-up after the hospital stay Insulin-dependent diabetes mellitus-he reports his sugars have been well controlled. -Continue home dose of long-acting insulin -Twice daily Accu-Cheks -Consider sliding scale if sugars are elevated Maintenance issues - -DVT prophylaxis-mechanical with thrombocytopenia -GI prophylaxis-not indicated -Nutrition-full liquids, advance if tolerated -Giraldo catheter-not indicated CODE STATUS -DNR/DNI Admission justification -this patient will be admitted for inpatient services and is medically appropriate meeting medical necessity for inpatient admission as outlined in my documentation. I reasonably expect the patient will require inpatient services that span a period time over 2 midnights. I reasonably expect this patient to be discharged or transferred within 96 hours after admission to the [facility]. Disposition -I anticipate discharge home after the hospital stay Primary care physician - Dr Liza Nur M.D. - Mortality Measure Prognosis:: Poor
[2021-10-03] MEDS ORDERED: Prochlorperazine 10 MG Tab PO PRN (19:07)
[2021-10-03] MEDS ORDERED: Acetaminophen 325 MG Tab PO PRN (19:07)
[2021-10-03] MEDS ORDERED: Ondansetron 4 MG/2 ML SDV IV PRN (19:07)
[2021-10-03] MEDS ORDERED: oxyCODONE 5 MG Tab PO PRN (19:07)
[2021-10-03] MEDS ORDERED: Ondansetron 4 MG Tab.DIS PO PRN (19:07)
[2021-10-03] MEDS ORDERED: LORazepam 2 MG/ML SDV IVPUSH PRN (19:07)
[2021-10-03] MEDS ORDERED: Morphine 2 MG/ML SYRINGE IVPUSH PRN (19:07)
[2021-10-03] MEDS: Sodium Chloride 0.9% 1,000 ML IV SCH (19:15)
[2021-10-03] MEDS: Cefepime 1 GM in Sodium Chloride 0.9% 50 ML IV SCH (20:25)
[2021-10-03] MEDS: Atropine/Diphenoxylate 0.025-2.5 MG Tab PO SCH (22:27)
[2021-10-03] MEDS: Lactobacillus Rhamnosus GG (Probiotic) Cap PO SCH (22:27)
[2021-10-04] MEDS: Cefepime 1 GM in Sodium Chloride 0.9% 50 ML IV SCH ×3 (04:46→20:59)
[2021-10-04] MEDS: Atropine/Diphenoxylate 0.025-2.5 MG Tab PO SCH ×4 (05:23→21:08)
[2021-10-04] MEDS: Sodium Chloride 0.9% 1,000 ML IV SCH (05:59)
[2021-10-04] MEDS: Dronabinol 2.5 MG Cap PO SCH ×2 (07:31→15:29)
[2021-10-04] MEDS: Amylase/Lipase/Protease 12,000 Unit Cap.CR PO SCH ×3 (07:31→15:25)
[2021-10-04] MEDS ORDERED: Insulin Glargine,Human Rec. Analog 100 Units/ML 3 ML Pen SUBCUT SCH (09:00)
[2021-10-04] MEDS ORDERED: Potassium Chloride 20 MEQ Tab.ER PO ONE (09:00)
[2021-10-04] MEDS: Aspirin 81 MG Tab.EC PO SCH (09:30)
[2021-10-04] MEDS: Potassium Chloride 20 MEQ in Premix Bag 1 BAG IV SCH ×2 (09:30→11:32)
[2021-10-04] MEDS: Lactobacillus Rhamnosus GG (Probiotic) Cap PO SCH ×2 (09:30→21:04)
--- NOTE | 2021-10-04 10:34 | PCM.PN ---
- General Info Date of Service: 10/04/21 Subjective Update: No acute events overnight. Patient did have a fever of 39.1 after arriving to the floor last night. He feels a little better today than yesterday. Still having a fair amount of diarrhea. No abdominal pain. Tolerated oatmeal for breakfast this morning. No cough or shortness of breath. No nausea. White blood cell count has improved but absolute neutrophil count remains quite low. Functional Status: Reports: Pain Controlled, Tolerating Diet - Review of Systems General: Reports: Fever, Weakness Gastrointestinal: Reports: Diarrhea - Patient Data Vitals - Most Recent: Last Vital Signs Temp 36.7 C 10/04/21 07:32 Pulse 80 10/04/21 07:32 Resp 16 10/04/21 07:32 BP 122/64 10/04/21 07:32 Pulse Ox 99 10/04/21 07:32 Weight - Most Recent: 70.1 kg I&O - Last 24 Hours: Intake & Output 10/03/21 10/04/21 10/04/21 22:59 06:59 14:59 Intake Total 1634 Balance 1634 Lab Results Last 24 Hours: Laboratory Results - last 24 hr 10/03/21 10/03/21 10/03/21 Range/Units 15:00 15:00 15:23 WBC (4.5-11.0) K/uL RBC (4.30-5.90) M/uL Hgb (12.0-15.0) g/dL Hct (40.0-54.0) % MCV (80-98) fL MCH (27-31) pg MCHC (32-36) % Plt Count (150-400) K/uL Add Manual Diff Neutrophils % (Manual) (36-66) % Band Neutrophils % (5-11) % Lymphocytes % (Manual) (24-44) % Monocytes % (Manual) (2-6) % Atypical Lymphocytes Hypochromasia Anisocytosis Microcytosis Macrocytosis Ovalocytes Sodium 134 L (140-148) mmol/L Potassium 4.1 (3.6-5.2) mmol/L Chloride 102 (100-108) mmol/L Carbon Dioxide 24 (21-32) mmol/L Anion Gap 12.1 (5.0-14.0) mmol/L BUN 14 (7-18) mg/dL Creatinine 0.8 (0.8-1.3) mg/dL Est Cr Clr Drug Dosing 64.97 mL/min Estimated GFR (MDRD) > 60 (>60) Glucose 109 H (74-106) mg/dL POC Glucose (74-106) mg/dL Lactic Acid 1.7 (0.4-2.0) mmol/L Calcium 7.9 L (8.5-10.1) mg/dL Total Bilirubin 0.6 (0.2-1.0) mg/dL AST 12 L (15-37) U/L ALT 13 (12-78) U/L Alkaline Phosphatase 75 (46-116) U/L C-Reactive Protein 9.79 H (0.0-0.3) mg/dL Total Protein 5.4 L (6.4-8.2) g/dL Albumin 2.1 L (3.4-5.0) g/dL Globulin 3.3 (2.3-3.5) g/dL Albumin/Globulin Ratio 0.6 L (1.2-2.2) Urine Color Yellow (YELLOW) Urine Appearance Clear (CLEAR) Urine pH 5.0 (5.0-8.0) Ur Specific [place] 1.025 (1.008-1.030) Urine Protein Negative (NEGATIVE) mg/dL Urine Glucose (UA) Negative (NEGATIVE) mg/dL Urine Ketones 15 H (NEGATIVE) mg/dL Urine Occult Blood Negative (NEGATIVE) Urine Nitrite Negative (NEGATIVE) Urine Bilirubin Negative (NEGATIVE) Urine Urobilinogen 0.2 (0.2-1.0) EU/dL Ur Leukocyte Esterase Negative (NEGATIVE) Urine RBC 0-5 (0-5) Urine WBC 0-5 (0-5) Ur Epithelial Cells Rare Amorphous Sediment Few Urine Bacteria Occasional Urine Mucus Many Urinalysis Comment See note Influenza Type A RNA (NEGATIVE) RSV RNA (INAAT) (NEGATIVE) Influenza Type B RNA (NEGATIVE) SARS-CoV-2 RNA (KRISSY) (NEGATIVE) 10/03/21 10/03/21 10/04/21 Range/Units 15:23 15:43 05:00 WBC 0.7 L* 1.6 L (4.5-11.0) K/uL RBC 2.91 L 2.55 L (4.30-5.90) M/uL Hgb 8.5 L D 7.4 L (12.0-15.0) g/dL Hct 26.4 L 23.3 L (40.0-54.0) % MCV 91 91 (80-98) fL MCH 29 29 (27-31) pg MCHC 32 32 (32-36) % Plt Count 31 L 25 L* (150-400) K/uL Add Manual Diff Yes Yes Neutrophils % (Manual) 4 L 14 L (36-66) % Band Neutrophils % 12 H 3 L (5-11) % Lymphocytes % (Manual) 68 H 67 H (24-44) % Monocytes % (Manual) 16 H 16 H (2-6) % Atypical Lymphocytes Few Hypochromasia Moderate H Anisocytosis Moderate H Moderate H Microcytosis Few Macrocytosis Few Ovalocytes Few Sodium (140-148) mmol/L Potassium (3.6-5.2) mmol/L Chloride (100-108) mmol/L Carbon Dioxide (21-32) mmol/L Anion Gap (5.0-14.0) mmol/L BUN (7-18) mg/dL Creatinine (0.8-1.3) mg/dL Est Cr Clr Drug Dosing mL/min Estimated GFR (MDRD) (>60) Glucose (74-106) mg/dL POC Glucose (74-106) mg/dL Lactic Acid (0.4-2.0) mmol/L Calcium (8.5-10.1) mg/dL Total Bilirubin (0.2-1.0) mg/dL AST (15-37) U/L ALT (12-78) U/L Alkaline Phosphatase (46-116) U/L C-Reactive Protein (0.0-0.3) mg/dL Total Protein (6.4-8.2) g/dL Albumin (3.4-5.0) g/dL Globulin (2.3-3.5) g/dL Albumin/Globulin Ratio (1.2-2.2) Urine Color (YELLOW) Urine Appearance (CLEAR) Urine pH (5.0-8.0) Ur Specific [place] (1.008-1.030) Urine Protein (NEGATIVE) mg/dL Urine Glucose (UA) (NEGATIVE) mg/dL Urine Ketones (NEGATIVE) mg/dL Urine Occult Blood (NEGATIVE) Urine Nitrite (NEGATIVE) Urine Bilirubin (NEGATIVE) Urine Urobilinogen (0.2-1.0) EU/dL Ur Leukocyte Esterase (NEGATIVE) Urine RBC (0-5) Urine WBC (0-5) Ur Epithelial Cells Amorphous Sediment Urine Bacteria Urine Mucus Urinalysis Comment Influenza Type A RNA Negative (NEGATIVE) RSV RNA (INAAT) Negative (NEGATIVE) Influenza Type B RNA Negative (NEGATIVE) SARS-CoV-2 RNA (KRISSY) Negative (NEGATIVE) 10/04/21 10/04/21 10/04/21 Range/Units 05:00 06:44 07:37 WBC (4.5-11.0) K/uL RBC (4.30-5.90) M/uL Hgb (12.0-15.0) g/dL Hct (40.0-54.0) % MCV (80-98) fL MCH (27-31) pg MCHC (32-36) % Plt Count (150-400) K/uL Add Manual Diff Neutrophils % (Manual) (36-66) % Band Neutrophils % (5-11) % Lymphocytes % (Manual) (24-44) % Monocytes % (Manual) (2-6) % Atypical Lymphocytes Hypochromasia Anisocytosis Microcytosis Macrocytosis Ovalocytes Sodium 140 (140-148) mmol/L Potassium 3.2 L (3.6-5.2) mmol/L Chloride 107 (100-108) mmol/L Carbon Dioxide 24 (21-32) mmol/L Anion Gap 12.2 (5.0-14.0) mmol/L BUN 10 (7-18) mg/dL Creatinine 0.7 L (0.8-1.3) mg/dL Est Cr Clr Drug Dosing 91.80 mL/min Estimated GFR (MDRD) > 60 (>60) Glucose 48 L* (74-106) mg/dL POC Glucose 44 L* 66 L (74-106) mg/dL Lactic Acid (0.4-2.0) mmol/L Calcium 8.0 L (8.5-10.1) mg/dL Total Bilirubin (0.2-1.0) mg/dL AST (15-37) U/L ALT (12-78) U/L Alkaline Phosphatase (46-116) U/L C-Reactive Protein (0.0-0.3) mg/dL Total Protein (6.4-8.2) g/dL Albumin (3.4-5.0) g/dL Globulin (2.3-3.5) g/dL Albumin/Globulin Ratio (1.2-2.2) Urine Color (YELLOW) Urine Appearance (CLEAR) Urine pH (5.0-8.0) Ur Specific [place] (1.008-1.030) Urine Protein (NEGATIVE) mg/dL Urine Glucose (UA) (NEGATIVE) mg/dL Urine Ketones (NEGATIVE) mg/dL Urine Occult Blood (NEGATIVE) Urine Nitrite (NEGATIVE) Urine Bilirubin (NEGATIVE) Urine Urobilinogen (0.2-1.0) EU/dL Ur Leukocyte Esterase (NEGATIVE) Urine RBC (0-5) Urine WBC (0-5) Ur Epithelial Cells Amorphous Sediment Urine Bacteria Urine Mucus Urinalysis Comment Influenza Type A RNA (NEGATIVE) RSV RNA (INAAT) (NEGATIVE) Influenza Type B RNA (NEGATIVE) SARS-CoV-2 RNA (KRISSY) (NEGATIVE) 10/04/21 Range/Units 08:51 WBC (4.5-11.0) K/uL RBC (4.30-5.90) M/uL Hgb (12.0-15.0) g/dL Hct (40.0-54.0) % MCV (80-98) fL MCH (27-31) pg MCHC (32-36) % Plt Count (150-400) K/uL Add Manual Diff Neutrophils % (Manual) (36-66) % Band Neutrophils % (5-11) % Lymphocytes % (Manual) (24-44) % Monocytes % (Manual) (2-6) % Atypical Lymphocytes Hypochromasia Anisocytosis Microcytosis Macrocytosis Ovalocytes Sodium (140-148) mmol/L Potassium (3.6-5.2) mmol/L Chloride (100-108) mmol/L Carbon Dioxide (21-32) mmol/L Anion Gap (5.0-14.0) mmol/L BUN (7-18) mg/dL Creatinine (0.8-1.3) mg/dL Est Cr Clr Drug Dosing mL/min Estimated GFR (MDRD) (>60) Glucose (74-106) mg/dL POC Glucose 120 H (74-106) mg/dL Lactic Acid (0.4-2.0) mmol/L Calcium (8.5-10.1) mg/dL Total Bilirubin (0.2-1.0) mg/dL AST (15-37) U/L ALT (12-78) U/L Alkaline Phosphatase (46-116) U/L C-Reactive Protein (0.0-0.3) mg/dL Total Protein (6.4-8.2) g/dL Albumin (3.4-5.0) g/dL Globulin (2.3-3.5) g/dL Albumin/Globulin Ratio (1.2-2.2) Urine Color (YELLOW) Urine Appearance (CLEAR) Urine pH (5.0-8.0) Ur Specific [place] (1.008-1.030) Urine Protein (NEGATIVE) mg/dL Urine Glucose (UA) (NEGATIVE) mg/dL Urine Ketones (NEGATIVE) mg/dL Urine Occult Blood (NEGATIVE) Urine Nitrite (NEGATIVE) Urine Bilirubin (NEGATIVE) Urine Urobilinogen (0.2-1.0) EU/dL Ur Leukocyte Esterase (NEGATIVE) Urine RBC (0-5) Urine WBC (0-5) Ur Epithelial Cells Amorphous Sediment Urine Bacteria Urine Mucus Urinalysis Comment Influenza Type A RNA (NEGATIVE) RSV RNA (INAAT) (NEGATIVE) Influenza Type B RNA (NEGATIVE) SARS-CoV-2 RNA (KRISSY) (NEGATIVE) Med Orders - Current: Current Medications Acetaminophen (Acetaminophen 325 Mg Tab) 650 mg PO Q4H PRN PRN Reason: Pain (Mild 1-3)/fever Last Admin: 10/03/21 19:52 Dose: 650 mg Documented by: Lipase/Protease/Amylase (Amylase/Lipase/Protease 12,000 Unit Cap.Cr) 6 cap PO TIDAC [facility] Last Admin: 10/04/21 07:31 Dose: 6 cap Documented by: Aspirin (Aspirin 81 Mg Tab.Ec) 81 mg PO DAILY [facility] Last Admin: 10/04/21 09:30 Dose: 81 mg Documented by: Diphenoxylate HCl/Atropine (Atropine/Diphenoxylate 0.025-2.5 Mg Tab) 1 tab PO QID [facility] Last Admin: 10/04/21 09:33 Dose: 1 tab Documented by: Dronabinol (Dronabinol 2.5 Mg Cap) 5 mg PO BIDAC [facility] Last Admin: 10/04/21 07:31 Dose: 5 mg Documented by: Cefepime HCl 1 gm/ Sodium (Chloride) 50 mls @ 100 mls/hr IV Q8H [facility] Last Admin: 10/04/21 04:46 Dose: 100 mls/hr Documented by: Vancomycin HCl 1 gm/ Sodium (Chloride) 250 mls @ 150 mls/hr IV Q12H [facility] Last Admin: 10/04/21 02:03 Dose: 150 mls/hr Documented by: Potassium Chloride 20 meq/ (Premix) 100 mls @ 50 mls/hr IV Q2H [facility] Stop: 10/04/21 12:59 Last Admin: 10/04/21 09:30 Dose: 50 mls/hr Documented by: Lactobacillus Rhamnosus (Lactobacillus Rhamnosus Gg (Probiotic) Cap) 1 cap PO BID [facility] Last Admin: 10/04/21 09:30 Dose: 1 cap Documented by: Loperamide HCl (Loperamide 2 Mg Cap) 2 mg PO Q4H PRN PRN Reason: Diarrhea Lorazepam (Lorazepam 2 Mg/Ml Sdv) 0.5 mg IVPUSH Q4H PRN PRN Reason: Nausea/Vomiting Morphine Sulfate (Morphine 2 Mg/Ml Syringe) 2 mg IVPUSH Q2H PRN PRN Reason: Pain (severe 7-10) Ondansetron HCl (Ondansetron 4 Mg/2 Ml Sdv) 4 mg IV Q6H PRN PRN Reason: Nausea/Vomiting Ondansetron HCl (Ondansetron 4 Mg Tab.Dis) 4 mg PO Q6H PRN PRN Reason: Nausea able to take PO Oxycodone HCl (Oxycodone 5 Mg Tab) 5 - 10 mg PO Q4H PRN PRN Reason: Pain Prochlorperazine Maleate (Prochlorperazine 10 Mg Tab) 10 mg PO Q6H PRN PRN Reason: Nausea/Vomiting Sodium Chloride (Sodium Chloride 0.9% 10 Ml Syringe) 10 ml FLUSH ASDIRECTED PRN PRN Reason: Keep Vein Open Discontinued Medications Vancomycin HCl 1 gm/ Sodium (Chloride) 250 mls @ 167 mls/hr IV STAT ONE Stop: 10/03/21 16:08 Last Admin: 10/03/21 15:20 Dose: 167 mls/hr Documented by: Ceftriaxone Sodium 1 gm/ (Sodium Chloride) 50 mls @ 100 mls/hr IV STAT ONE Stop: 10/03/21 15:08 Last Admin: 10/03/21 16:59 Dose: 100 mls/hr Documented by: Sodium Chloride (Normal Saline) 1,000 mls @ 999 mls/hr IV BOLUS ONE; Protocol Stop: 10/03/21 15:39 Last Admin: 10/03/21 15:22 Dose: 999 mls/hr Documented by: Sodium Chloride (Normal Saline) 1,000 mls @ 125 mls/hr IV ASDIRECTED [facility]IZABET Last Admin: 10/04/21 05:59 Dose: 125 mls/hr Documented by: Insulin Glargine (Insulin Glargine,Human Rec. Analog 100 Units/Ml 3 Ml Pen) 15 units SUBCUT DAILY [facility] Potassium Chloride (Potassium Chloride 20 Meq Tab.Er) 20 meq PO ONETIME ONE Stop: 10/04/21 09:01 Last Admin: 10/04/21 09:30 Dose: 20 meq Documented by: - Exam Quality Assessment: No: Supplemental Oxygen General: Alert, Oriented, Cooperative, No Acute Distress Lungs: Normal Respiratory Effort. No: Wheezing GI/Abdominal Exam: Soft, No Distention Skin: Warm, Dry Psy/Mental Status: Alert, Normal Affect - Patient Data Lab Results Last 24 hrs: Laboratory Results - last 24 hr 10/03/21 10/03/21 10/03/21 Range/Units 15:00 15:00 15:23 WBC (4.5-11.0) K/uL RBC (4.30-5.90) M/uL Hgb (12.0-15.0) g/dL Hct (40.0-54.0) % MCV (80-98) fL MCH (27-31) pg MCHC (32-36) % Plt Count (150-400) K/uL Add Manual Diff Neutrophils % (Manual) (36-66) % Band Neutrophils % (5-11) % Lymphocytes % (Manual) (24-44) % Monocytes % (Manual) (2-6) % Atypical Lymphocytes Hypochromasia Anisocytosis Microcytosis Macrocytosis Ovalocytes Sodium 134 L (140-148) mmol/L Potassium 4.1 (3.6-5.2) mmol/L Chloride 102 (100-108) mmol/L Carbon Dioxide 24 (21-32) mmol/L Anion Gap 12.1 (5.0-14.0) mmol/L BUN 14 (7-18) mg/dL Creatinine 0.8 (0.8-1.3) mg/dL Est Cr Clr Drug Dosing 64.97 mL/min Estimated GFR (MDRD) > 60 (>60) Glucose 109 H (74-106) mg/dL POC Glucose (74-106) mg/dL Lactic Acid 1.7 (0.4-2.0) mmol/L Calcium 7.9 L (8.5-10.1) mg/dL Total Bilirubin 0.6 (0.2-1.0) mg/dL AST 12 L (15-37) U/L ALT 13 (12-78) U/L Alkaline Phosphatase 75 (46-116) U/L C-Reactive Protein 9.79 H (0.0-0.3) mg/dL Total Protein 5.4 L (6.4-8.2) g/dL Albumin 2.1 L (3.4-5.0) g/dL Globulin 3.3 (2.3-3.5) g/dL Albumin/Globulin Ratio 0.6 L (1.2-2.2) Urine Color Yellow (YELLOW) Urine Appearance Clear (CLEAR) Urine pH 5.0 (5.0-8.0) Ur Specific [place] 1.025 (1.008-1.030) Urine Protein Negative (NEGATIVE) mg/dL Urine Glucose (UA) Negative (NEGATIVE) mg/dL Urine Ketones 15 H (NEGATIVE) mg/dL Urine Occult Blood Negative (NEGATIVE) Urine Nitrite Negative (NEGATIVE) Urine Bilirubin Negative (NEGATIVE) Urine Urobilinogen 0.2 (0.2-1.0) EU/dL Ur Leukocyte Esterase Negative (NEGATIVE) Urine RBC 0-5 (0-5) Urine WBC 0-5 (0-5) Ur Epithelial Cells Rare Amorphous Sediment Few Urine Bacteria Occasional Urine Mucus Many Urinalysis Comment See note Influenza Type A RNA (NEGATIVE) RSV RNA (INAAT) (NEGATIVE) Influenza Type B RNA (NEGATIVE) SARS-CoV-2 RNA (KRISSY) (NEGATIVE) 10/03/21 10/03/21 10/04/21 Range/Units 15:23 15:43 05:00 WBC 0.7 L* 1.6 L (4.5-11.0) K/uL RBC 2.91 L 2.55 L (4.30-5.90) M/uL Hgb 8.5 L D 7.4 L (12.0-15.0) g/dL Hct 26.4 L 23.3 L (40.0-54.0) % MCV 91 91 (80-98) fL MCH 29 29 (27-31) pg MCHC 32 32 (32-36) % Plt Count 31 L 25 L* (150-400) K/uL Add Manual Diff Yes Yes Neutrophils % (Manual) 4 L 14 L (36-66) % Band Neutrophils % 12 H 3 L (5-11) % Lymphocytes % (Manual) 68 H 67 H (24-44) % Monocytes % (Manual) 16 H 16 H (2-6) % Atypical Lymphocytes Few Hypochromasia Moderate H Anisocytosis Moderate H Moderate H Microcytosis Few Macrocytosis Few Ovalocytes Few Sodium (140-148) mmol/L Potassium (3.6-5.2) mmol/L Chloride (100-108) mmol/L Carbon Dioxide (21-32) mmol/L Anion Gap (5.0-14.0) mmol/L BUN (7-18) mg/dL Creatinine (0.8-1.3) mg/dL Est Cr Clr Drug Dosing mL/min Estimated GFR (MDRD) (>60) Glucose (74-106) mg/dL POC Glucose (74-106) mg/dL Lactic Acid (0.4-2.0) mmol/L Calcium (8.5-10.1) mg/dL Total Bilirubin (0.2-1.0) mg/dL AST (15-37) U/L ALT (12-78) U/L Alkaline Phosphatase (46-116) U/L C-Reactive Protein (0.0-0.3) mg/dL Total Protein (6.4-8.2) g/dL Albumin (3.4-5.0) g/dL Globulin (2.3-3.5) g/dL Albumin/Globulin Ratio (1.2-2.2) Urine Color (YELLOW) Urine Appearance (CLEAR) Urine pH (5.0-8.0) Ur Specific [place] (1.008-1.030) Urine Protein (NEGATIVE) mg/dL Urine Glucose (UA) (NEGATIVE) mg/dL Urine Ketones (NEGATIVE) mg/dL Urine Occult Blood (NEGATIVE) Urine Nitrite (NEGATIVE) Urine Bilirubin (NEGATIVE) Urine Urobilinogen (0.2-1.0) EU/dL Ur Leukocyte Esterase (NEGATIVE) Urine RBC (0-5) Urine WBC (0-5) Ur Epithelial Cells Amorphous Sediment Urine Bacteria Urine Mucus Urinalysis Comment Influenza Type A RNA Negative (NEGATIVE) RSV RNA (INAAT) Negative (NEGATIVE) Influenza Type B RNA Negative (NEGATIVE) SARS-CoV-2 RNA (KRISSY) Negative (NEGATIVE) 10/04/21 10/04/21 10/04/21 Range/Units 05:00 06:44 07:37 WBC (4.5-11.0) K/uL RBC (4.30-5.90) M/uL Hgb (12.0-15.0) g/dL Hct (40.0-54.0) % MCV (80-98) fL MCH (27-31) pg MCHC (32-36) % Plt Count (150-400) K/uL Add Manual Diff Neutrophils % (Manual) (36-66) % Band Neutrophils % (5-11) % Lymphocytes % (Manual) (24-44) % Monocytes % (Manual) (2-6) % Atypical Lymphocytes Hypochromasia Anisocytosis Microcytosis Macrocytosis Ovalocytes Sodium 140 (140-148) mmol/L Potassium 3.2 L (3.6-5.2) mmol/L Chloride 107 (100-108) mmol/L Carbon Dioxide 24 (21-32) mmol/L Anion Gap 12.2 (5.0-14.0) mmol/L BUN 10 (7-18) mg/dL Creatinine 0.7 L (0.8-1.3) mg/dL Est Cr Clr Drug Dosing 91.80 mL/min Estimated GFR (MDRD) > 60 (>60) Glucose 48 L* (74-106) mg/dL POC Glucose 44 L* 66 L (74-106) mg/dL Lactic Acid (0.4-2.0) mmol/L Calcium 8.0 L (8.5-10.1) mg/dL Total Bilirubin (0.2-1.0) mg/dL AST (15-37) U/L ALT (12-78) U/L Alkaline Phosphatase (46-116) U/L C-Reactive Protein (0.0-0.3) mg/dL Total Protein (6.4-8.2) g/dL Albumin (3.4-5.0) g/dL Globulin (2.3-3.5) g/dL Albumin/Globulin Ratio (1.2-2.2) Urine Color (YELLOW) Urine Appearance (CLEAR) Urine pH (5.0-8.0) Ur Specific [place] (1.008-1.030) Urine Protein (NEGATIVE) mg/dL Urine Glucose (UA) (NEGATIVE) mg/dL Urine Ketones (NEGATIVE) mg/dL Urine Occult Blood (NEGATIVE) Urine Nitrite (NEGATIVE) Urine Bilirubin (NEGATIVE) Urine Urobilinogen (0.2-1.0) EU/dL Ur Leukocyte Esterase (NEGATIVE) Urine RBC (0-5) Urine WBC (0-5) Ur Epithelial Cells Amorphous Sediment Urine Bacteria Urine Mucus Urinalysis Comment Influenza Type A RNA (NEGATIVE) RSV RNA (INAAT) (NEGATIVE) Influenza Type B RNA (NEGATIVE) SARS-CoV-2 RNA (KRISSY) (NEGATIVE) 10/04/21 Range/Units 08:51 WBC (4.5-11.0) K/uL RBC (4.30-5.90) M/uL Hgb (12.0-15.0) g/dL Hct (40.0-54.0) % MCV (80-98) fL MCH (27-31) pg MCHC (32-36) % Plt Count (150-400) K/uL Add Manual Diff Neutrophils % (Manual) (36-66) % Band Neutrophils % (5-11) % Lymphocytes % (Manual) (24-44) % Monocytes % (Manual) (2-6) % Atypical Lymphocytes Hypochromasia Anisocytosis Microcytosis Macrocytosis Ovalocytes Sodium (140-148) mmol/L Potassium (3.6-5.2) mmol/L Chloride (100-108) mmol/L Carbon Dioxide (21-32) mmol/L Anion Gap (5.0-14.0) mmol/L BUN (7-18) mg/dL Creatinine (0.8-1.3) mg/dL Est Cr Clr Drug Dosing mL/min Estimated GFR (MDRD) (>60) Glucose (74-106) mg/dL POC Glucose 120 H (74-106) mg/dL Lactic Acid (0.4-2.0) mmol/L Calcium (8.5-10.1) mg/dL Total Bilirubin (0.2-1.0) mg/dL AST (15-37) U/L ALT (12-78) U/L Alkaline Phosphatase (46-116) U/L C-Reactive Protein (0.0-0.3) mg/dL Total Protein (6.4-8.2) g/dL Albumin (3.4-5.0) g/dL Globulin (2.3-3.5) g/dL Albumin/Globulin Ratio (1.2-2.2) Urine Color (YELLOW) Urine Appearance (CLEAR) Urine pH (5.0-8.0) Ur Specific [place] (1.008-1.030) Urine Protein (NEGATIVE) mg/dL Urine Glucose (UA) (NEGATIVE) mg/dL Urine Ketones (NEGATIVE) mg/dL Urine Occult Blood (NEGATIVE) Urine Nitrite (NEGATIVE) Urine Bilirubin (NEGATIVE) Urine Urobilinogen (0.2-1.0) EU/dL Ur Leukocyte Esterase (NEGATIVE) Urine RBC (0-5) Urine WBC (0-5) Ur Epithelial Cells Amorphous Sediment Urine Bacteria Urine Mucus Urinalysis Comment Influenza Type A RNA (NEGATIVE) RSV RNA (INAAT) (NEGATIVE) Influenza Type B RNA (NEGATIVE) SARS-CoV-2 RNA (KRISSY) (NEGATIVE) Result Diagrams: 10/04/21 05:00 10/04/21 05:00 Sepsis Event Note - Evaluation Sepsis Screening Result: Possible Sepsis Risk - Focused Exam Vital Signs: Vital Signs Temp Pulse Resp BP Pulse Ox 10/04/21 07:32 36.7 C 80 16 122/64 99 10/04/21 04:46 36.1 C 86 18 147/83 H 98 - Problem List & Annotations (1) Neutropenic fever SNOMED Code(s): 936098045 Code(s): D70.9 - NEUTROPENIA, UNSPECIFIED; R50.81 - FEVER PRESENTING WITH CONDITIONS CLASSIFIED ELSEWHERE Status: Acute Priority: High Current Vis it: Yes (2) Pancreatic malignant neoplasm SNOMED Code(s): 713063653 Code(s): C25.9 - MALIGNANT NEOPLASM OF PANCREAS, UNSPECIFIED Status: Acute Priority: High Current Visit: Yes Qualifiers: Pancreatic malignancy location: head of pancreas Qualified Code(s): C25.0 - Malignant neoplasm of head of pancreas (3) Pancytopenia due to chemotherapy SNOMED Code(s): 4471882, 536689321 Code(s): D61.810 - ANTINEOPLASTIC CHEMOTHERAPY INDUCED PANCYTOPENIA Status: Acute Priority: High Current Visit: Yes (4) Insulin dependent diabetes mellitus SNOMED Code(s): 37478980 Code(s): FQA3427 - Status: Chronic Current Visit: Yes - Problem List Review Problem List Initiated/Reviewed/Updated: Yes - My Orders Last 24 Hours: My Active Orders 10/03/21 18:29 Resuscitation Status Routine 10/03/21 19:07 Acetaminophen [TylenoL] 650 mg PO Q4H PRN LORazepam [Ativan] 0.5 mg IVPUSH Q4H PRN Loperamide [Imodium] 2 mg PO Q4H PRN Morphine 2 mg IVPUSH Q2H PRN Ondansetron [Zofran ODT] 4 mg PO Q6H PRN Ondansetron [Zofran] 4 mg IV Q6H PRN Prochlorperazine [Compazine] 10 mg PO Q6H PRN oxyCODONE 5 - 10 mg PO Q4H PRN 10/03/21 19:07 Patient Status [ADT] Routine Antiembolic Devices [RC] .Routine Communication Order [RC] PRN Communication Order [RC] PRN Diabetes Education [RC] Click to Edit Intake and Output [RC] QSHIFT Notify Provider Vital Signs [RC] ASDIRECTED Notify Provider [RC] PRN Oxygen Therapy [RC] PRN Up With Assistance [RC] ASDIRECTED Vital Signs [RC] Q4H Sequential Compression Device [OM.PC] Routine VTE Pharmacological Contraindications [AST] Routine 10/03/21 21:00 Cefepime [Maxipime] 1 gm Sodium Chloride 0.9% [Normal Saline AdvBag] 50 ml IV Q8H Lactobacillus Rhamnosus GG [Culturelle] 1 cap PO BID 10/03/21 22:00 Atropine/Diphenoxylate [Lomotil 0.025-2.5 MG] 1 tab PO QID 10/04/21 03:00 Vancomycin 1 gm Sodium Chloride 0.9% [Normal Saline] 250 ml IV Q12H 10/04/21 07:30 Amylase/Lipase/Protease [Creon DR 12,000 Units] 6 cap PO TIDAC dronabinoL [Marinol] 5 mg PO BIDAC 10/04/21 Breakfast Regular Diet [DIET] 10/04/21 09:00 Aspirin [Halfprin] 81 mg PO DAILY Potassium Chloride [KCL in Water 20 MEQ/100 ML] 20 meq Premix Bag 1 bag IV Q2H 10/04/21 10:31 CLOS DIFFICILE PCR W/REFLEX [RM] Routine CULTURE STOOL + SHIGATOX [RM] Routine 10/04/21 10:45 Sodium Chloride 0.9% [Normal Saline] 1,000 ml IV ASDIRECTED 10/04/21 11:00 Insulin Lispro [HumaLOG] See Protocol SUBCUT QIDACANDBED 10/04/21 11:30 GLUCOSE POC LAB TO COLLECT JPM [POC] QIDACANDBED 10/04/21 16:30 GLUCOSE POC LAB TO COLLECT JPM [POC] QIDACANDBED 10/04/21 21:00 GLUCOSE POC LAB TO COLLECT JPM [POC] QIDACANDBED 10/05/21 05:00 BASIC METABOLIC PANEL,BMP [CHEM] Timed CBC WITH AUTO DIFF [HEME] Timed 10/05/21 07:30 GLUCOSE POC LAB TO COLLECT JPM [POC] QIDACANDBED 10/05/21 11:30 GLUCOSE POC LAB TO COLLECT JPM [POC] QIDACANDBED 10/05/21 16:30 GLUCOSE POC LAB TO COLLECT JPM [POC] QIDACANDBED 10/05/21 21:00 GLUCOSE POC LAB TO COLLECT JPM [POC] QIDACANDBED 10/06/21 07:30 GLUCOSE POC LAB TO COLLECT JPM [POC] QIDACANDBED 10/06/21 11:30 GLUCOSE POC LAB TO COLLECT JPM [POC] QIDACANDBED 10/06/21 16:30 GLUCOSE POC LAB TO COLLECT JPM [POC] QIDACANDBED 10/06/21 21:00 GLUCOSE POC LAB TO COLLECT JPM [POC] QIDACANDBED 10/07/21 07:30 GLUCOSE POC LAB TO COLLECT JPM [POC] QIDACANDBED 10/07/21 11:30 GLUCOSE POC LAB TO COLLECT JPM [POC] QIDACANDBED 10/07/21 16:30 GLUCOSE POC LAB TO COLLECT JPM [POC] QIDACANDBED 10/07/21 21:00 GLUCOSE POC LAB TO COLLECT JPM [POC] QIDACANDBED 10/08/21 07:30 GLUCOSE POC LAB TO COLLECT JPM [POC] QIDACANDBED 10/08/21 11:30 GLUCOSE POC LAB TO COLLECT JPM [POC] QIDACANDBED 10/08/21 16:30 GLUCOSE POC LAB TO COLLECT JPM [POC] QIDACANDBED 10/08/21 21:00 GLUCOSE POC LAB TO COLLECT JPM [POC] QIDACANDBED 10/09/21 07:30 GLUCOSE POC LAB TO COLLECT JPM [POC] QIDACANDBED 10/09/21 11:30 GLUCOSE POC LAB TO COLLECT JPM [POC] QIDACANDBED 10/09/21 16:30 GLUCOSE POC LAB TO COLLECT JPM [POC] QIDACANDBED - Plan Plan:: ASSESSMENT AND PLAN - Neutropenic fever-most recent chemotherapy was 9 days [employer]. Most likely source of bacteremia would be gastrointestinal. Lungs are clear, skin exam is benign and urine is clear. Tolerating antibiotics. Last fever was last night. Cultures negative so far. -Stool studies for C. difficile and stool culture -Cefepime and vancomycin -Gentle IV fluids for hydration -Follow-up cultures -Discuss case with oncology -Symptomatic management of pain, nausea and diarrhea -Repeat white blood cell count with differential in the morning Pancreatic cancer-currently receiving chemotherapy with the goal of shrinking the mass enough so he can have surgery. -Outpatient follow-up after the hospital stay Insulin-dependent diabetes mellitus-he had hypoglycemia this morning. -Hold long-acting insulin -4 times daily Accu-Cheks -sliding scale Maintenance issues - -DVT prophylaxis-mechanical with thrombocytopenia -GI prophylaxis-not indicated -Nutrition-full liquids, advance if tolerated Disposition -I anticipate discharge home after the hospital stay Primary care physician - Dr Liza Nur M.D.
[2021-10-04] MEDS ORDERED: Sodium Chloride 0.9% 1,000 ML IV SCH (10:45)
[2021-10-04] MEDS: Insulin Lispro 100 Unit/ML 3 ML KwikPen SUBCUT SCH ×3 (11:36→21:04)
[2021-10-05] MEDS: Cefepime 1 GM in Sodium Chloride 0.9% 50 ML IV SCH ×3 (05:38→21:38)
[2021-10-05] MEDS: Atropine/Diphenoxylate 0.025-2.5 MG Tab PO SCH ×4 (05:43→21:45)
[2021-10-05] MEDS: Insulin Lispro 100 Unit/ML 3 ML KwikPen SUBCUT SCH ×4 (07:36→21:38)
[2021-10-05] MEDS: Loperamide 2 MG Cap PO PRN ×2 (08:13→16:27)
[2021-10-05] MEDS: Amylase/Lipase/Protease 12,000 Unit Cap.CR PO SCH ×3 (08:13→16:27)
[2021-10-05] MEDS: Lactobacillus Rhamnosus GG (Probiotic) Cap PO SCH ×2 (08:13→21:39)
[2021-10-05] MEDS: Aspirin 81 MG Tab.EC PO SCH (08:13)
[2021-10-05] MEDS: Dronabinol 2.5 MG Cap PO SCH ×2 (08:13→16:27)
--- NOTE | 2021-10-05 09:54 | PCM.PN ---
- General Info Date of Service: 10/05/21 Subjective Update: No acute events overnight. No fevers last night. Feeling a little better again today. Diarrhea seems to have slowed down. No significant nausea. No signific ant abdominal pain. Still not much oral intake but slowly better. Cultures all remain negative. Absolute neutrophil count is now about 800. Stool testing yesterday was negative. Functional Status: Reports: Pain Controlled, Tolerating Diet - Review of Systems General: Reports: Weakness Gastrointestinal: Reports: Diarrhea - Patient Data Vitals - Most Recent: Last Vital Signs Temp 37.2 C 10/05/21 08:07 Pulse 76 10/05/21 08:07 Resp 16 10/05/21 08:07 BP 125/63 10/05/21 08:07 Pulse Ox 98 10/05/21 08:07 Weight - Most Recent: 70.1 kg I&O - Last 24 Hours: Intake & Output 10/04/21 10/05/21 10/05/21 22:59 06:59 14:59 Intake Total 650 200 Balance 650 200 Lab Results Last 24 Hours: Laboratory Results - last 24 hr 10/04/21 10/04/21 10/04/21 Range/Units 11:25 16:45 21:00 WBC (4.5-11.0) K/uL RBC (4.30-5.90) M/uL Hgb (12.0-15.0) g/dL Hct (40.0-54.0) % MCV (80-98) fL MCH (27-31) pg MCHC (32-36) % Plt Count (150-400) K/uL Add Manual Diff Neutrophils % (Manual) (36-66) % Band Neutrophils % (5-11) % Lymphocytes % (Manual) (24-44) % Monocytes % (Manual) (2-6) % Atypical Lymphocytes Tear Drop Cells Sodium (140-148) mmol/L Potassium (3.6-5.2) mmol/L Chloride (100-108) mmol/L Carbon Dioxide (21-32) mmol/L Anion Gap (5.0-14.0) mmol/L BUN (7-18) mg/dL Creatinine (0.8-1.3) mg/dL Est Cr Clr Drug Dosing mL/min Estimated GFR (MDRD) (>60) Glucose (74-106) mg/dL POC Glucose 157 H 189 H 176 H (74-106) mg/dL Calcium (8.5-10.1) mg/dL Blood Type Gel Antibody Screen Crossmatch 10/05/21 10/05/21 10/05/21 Range/Units 06:05 06:05 06:27 WBC 2.4 L (4.5-11.0) K/uL RBC 2.38 L (4.30-5.90) M/uL Hgb 6.8 L* (12.0-15.0) g/dL Hct 21.8 L (40.0-54.0) % MCV 92 (80-98) fL MCH 29 (27-31) pg MCHC 31 L (32-36) % Plt Count 22 L* (150-400) K/uL Add Manual Diff Yes Neutrophils % (Manual) 34 L (36-66) % Band Neutrophils % 8 (5-11) % Lymphocytes % (Manual) 48 H (24-44) % Monocytes % (Manual) 10 H (2-6) % Atypical Lymphocytes Few Tear Drop Cells Few Sodium 137 L (140-148) mmol/L Potassium 3.6 (3.6-5.2) mmol/L Chloride 107 (100-108) mmol/L Carbon Dioxide 22 (21-32) mmol/L Anion Gap 11.6 (5.0-14.0) mmol/L BUN 8 (7-18) mg/dL Creatinine 0.6 L (0.8-1.3) mg/dL Est Cr Clr Drug Dosing 107.10 mL/min Estimated GFR (MDRD) > 60 (>60) Glucose 130 H (74-106) mg/dL POC Glucose (74-106) mg/dL Calcium 7.6 L (8.5-10.1) mg/dL Blood Type A NEGATIVE Gel Antibody Screen Negative Crossmatch See Detail 10/05/21 Range/Units 07:16 WBC (4.5-11.0) K/uL RBC (4.30-5.90) M/uL Hgb (12.0-15.0) g/dL Hct (40.0-54.0) % MCV (80-98) fL MCH (27-31) pg MCHC (32-36) % Plt Count (150-400) K/uL Add Manual Diff Neutrophils % (Manual) (36-66) % Band Neutrophils % (5-11) % Lymphocytes % (Manual) (24-44) % Monocytes % (Manual) (2-6) % Atypical Lymphocytes Tear Drop Cells Sodium (140-148) mmol/L Potassium (3.6-5.2) mmol/L Chloride (100-108) mmol/L Carbon Dioxide (21-32) mmol/L Anion Gap (5.0-14.0) mmol/L BUN (7-18) mg/dL Creatinine (0.8-1.3) mg/dL Est Cr Clr Drug Dosing mL/min Estimated GFR (MDRD) (>60) Glucose (74-106) mg/dL POC Glucose 117 H (74-106) mg/dL Calcium (8.5-10.1) mg/dL Blood Type Gel Antibody Screen Crossmatch Tod Results Last 24 Hours: Microbiology 10/04/21 13:17 Stool Culture - Preliminary Stool / Feces NORMAL ENTERIC HUNTER 1 DAY Shiga Toxin I - Final NEGATIVE FOR SHIGA TOXIN 1 Shiga Toxin II - Final NEGATIVE FOR SHIGA TOXIN 2 REFERENCE RANGE: NEGATIVE Clostridioides difficile (PCR) - Final 10/03/21 15:10 Aerobic Blood Culture - Preliminary Blood - Arm, Right NO GROWTH AFTER 1 DAY Anaerobic Blood Culture - Preliminary NO GROWTH AFTER 1 DAY 10/03/21 15:00 Aerobic Blood Culture - Preliminary Blood - Arm, Right NO GROWTH AFTER 1 DAY Anaerobic Blood Culture - Preliminary NO GROWTH AFTER 1 DAY Med Orders - Current: Current Medications Acetaminophen (Acetaminophen 325 Mg Tab) 650 mg PO Q4H PRN PRN Reason: Pain (Mild 1-3)/fever Last Admin: 10/03/21 19:52 Dose: 650 mg Documented by: Lipase/Protease/Amylase (Amylase/Lipase/Protease 12,000 Unit Cap.Cr) 6 cap PO TIDAC [facility] Last Admin: 10/05/21 08:13 Dose: 6 cap Documented by: Aspirin (Aspirin 81 Mg Tab.Ec) 81 mg PO DAILY [facility] Last Admin: 10/05/21 08:13 Dose: 81 mg Documented by: Diphenoxylate HCl/Atropine (Atropine/Diphenoxylate 0.025-2.5 Mg Tab) 1 tab PO QID [facility] Last Admin: 10/05/21 05:43 Dose: 1 tab Documented by: Dronabinol (Dronabinol 2.5 Mg Cap) 5 mg PO BIDAC [facility] Last Admin: 10/05/21 08:13 Dose: 5 mg Documented by: Cefepime HCl 1 gm/ Sodium (Chloride) 50 mls @ 100 mls/hr IV Q8H [facility] Last Admin: 10/05/21 05:38 Dose: 100 mls/hr Documented by: Vancomycin HCl 1 gm/ Sodium (Chloride) 250 mls @ 150 mls/hr IV Q12H [facility] Last Admin: 10/05/21 03:59 Dose: 150 mls/hr Documented by: Sodium Chloride (Normal Saline) 1,000 mls @ 50 mls/hr IV ASDIRECTED [facility] Last Admin: 10/04/21 20:58 Dose: 50 mls/hr Documented by: Insulin Human Lispro (Insulin Lispro 100 Unit/Ml 3 Ml Kwikpen) 0 unit SUBCUT QIDACANDBED [facility]; Protocol Last Admin: 10/05/21 07:36 Dose: Not Given Documented by: Lactobacillus Rhamnosus (Lactobacillus Rhamnosus Gg (Probiotic) Cap) 1 cap PO BID [facility] Last Admin: 10/05/21 08:13 Dose: 1 cap Documented by: Loperamide HCl (Loperamide 2 Mg Cap) 2 mg PO Q4H PRN PRN Reason: Diarrhea Last Admin: 10/05/21 08:13 Dose: 2 mg Documented by: Lorazepam (Lorazepam 2 Mg/Ml Sdv) 0.5 mg IVPUSH Q4H PRN PRN Reason: Nausea/Vomiting Morphine Sulfate (Morphine 2 Mg/Ml Syringe) 2 mg IVPUSH Q2H PRN PRN Reason: Pain (severe 7-10) Ondansetron HCl (Ondansetron 4 Mg/2 Ml Sdv) 4 mg IV Q6H PRN PRN Reason: Nausea/Vomiting Ondansetron HCl (Ondansetron 4 Mg Tab.Dis) 4 mg PO Q6H PRN PRN Reason: Nausea able to take PO Oxycodone HCl (Oxycodone 5 Mg Tab) 5 - 10 mg PO Q4H PRN PRN Reason: Pain Prochlorperazine Maleate (Prochlorperazine 10 Mg Tab) 10 mg PO Q6H PRN PRN Reason: Nausea/Vomiting Sodium Chloride (Sodium Chloride 0.9% 10 Ml Syringe) 10 ml FLUSH ASDIRECTED PRN PRN Reason: Keep Vein Open Discontinued Medications Vancomycin HCl 1 gm/ Sodium (Chloride) 250 mls @ 167 mls/hr IV STAT ONE Stop: 10/03/21 16:08 Last Admin: 10/03/21 15:20 Dose: 167 mls/hr Documented by: Ceftriaxone Sodium 1 gm/ (Sodium Chloride) 50 mls @ 100 mls/hr IV STAT ONE Stop: 10/03/21 15:08 Last Admin: 10/03/21 16:59 Dose: 100 mls/hr Documented by: Sodium Chloride (Normal Saline) 1,000 mls @ 999 mls/hr IV BOLUS ONE; Protocol Stop: 10/03/21 15:39 Last Admin: 10/03/21 15:22 Dose: 999 mls/hr Documented by: Sodium Chloride (Normal Saline) 1,000 mls @ 125 mls/hr IV ASDIRECTED [facility] Last Admin: 10/04/21 05:59 Dose: 125 mls/hr Documented by: Potassium Chloride 20 meq/ (Premix) 100 mls @ 50 mls/hr IV Q2H [facility] Stop: 10/04/21 12:59 Last Admin: 10/04/21 11:32 Dose: 50 mls/hr Documented by: Insulin Glargine (Insulin Glargine,Human Rec. Analog 100 Units/Ml 3 Ml Pen) 15 units SUBCUT DAILY [facility] Potassium Chloride (Potassium Chloride 20 Meq Tab.Er) 20 meq PO ONETIME ONE Stop: 10/04/21 09:01 Last Admin: 10/04/21 09:30 Dose: 20 meq Documented by: - Exam Quality Assessment: No: Supplemental Oxygen General: Alert, Oriented, Cooperative, No Acute Distress Lungs: Normal Respiratory Effort. No: Wheezing GI/Abdominal Exam: Soft, No Distention Skin: Warm, Dry Psy/Mental Status: Alert, Normal Affect - Patient Data Lab Results Last 24 hrs: Laboratory Results - last 24 hr 10/04/21 10/04/21 10/04/21 Range/Units 11:25 16:45 21:00 WBC (4.5-11.0) K/uL RBC (4.30-5.90) M/uL Hgb (12.0-15.0) g/dL Hct (40.0-54.0) % MCV (80-98) fL MCH (27-31) pg MCHC (32-36) % Plt Count (150-400) K/uL Add Manual Diff Neutrophils % (Manual) (36-66) % Band Neutrophils % (5-11) % Lymphocytes % (Manual) (24-44) % Monocytes % (Manual) (2-6) % Atypical Lymphocytes Tear Drop Cells Sodium (140-148) mmol/L Potassium (3.6-5.2) mmol/L Chloride (100-108) mmol/L Carbon Dioxide (21-32) mmol/L Anion Gap (5.0-14.0) mmol/L BUN (7-18) mg/dL Creatinine (0.8-1.3) mg/dL Est Cr Clr Drug Dosing mL/min Estimated GFR (MDRD) (>60) Glucose (74-106) mg/dL POC Glucose 157 H 189 H 176 H (74-106) mg/dL Calcium (8.5-10.1) mg/dL Blood Type Gel Antibody Screen Crossmatch 10/05/21 10/05/21 10/05/21 Range/Units 06:05 06:05 06:27 WBC 2.4 L (4.5-11.0) K/uL RBC 2.38 L (4.30-5.90) M/uL Hgb 6.8 L* (12.0-15.0) g/dL Hct 21.8 L (40.0-54.0) % MCV 92 (80-98) fL MCH 29 (27-31) pg MCHC 31 L (32-36) % Plt Count 22 L* (150-400) K/uL Add Manual Diff Yes Neutrophils % (Manual) 34 L (36-66) % Band Neutrophils % 8 (5-11) % Lymphocytes % (Manual) 48 H (24-44) % Monocytes % (Manual) 10 H (2-6) % Atypical Lymphocytes Few Tear Drop Cells Few Sodium 137 L (140-148) mmol/L Potassium 3.6 (3.6-5.2) mmol/L Chloride 107 (100-108) mmol/L Carbon Dioxide 22 (21-32) mmol/L Anion Gap 11.6 (5.0-14.0) mmol/L BUN 8 (7-18) mg/dL Creatinine 0.6 L (0.8-1.3) mg/dL Est Cr Clr Drug Dosing 107.10 mL/min Estimated GFR (MDRD) > 60 (>60) Glucose 130 H (74-106) mg/dL POC Glucose (74-106) mg/dL Calcium 7.6 L (8.5-10.1) mg/dL Blood Type A NEGATIVE Gel Antibody Screen Negative Crossmatch See Detail 10/05/21 Range/Units 07:16 WBC (4.5-11.0) K/uL RBC (4.30-5.90) M/uL Hgb (12.0-15.0) g/dL Hct (40.0-54.0) % MCV (80-98) fL MCH (27-31) pg MCHC (32-36) % Plt Count (150-400) K/uL Add Manual Diff Neutrophils % (Manual) (36-66) % Band Neutrophils % (5-11) % Lymphocytes % (Manual) (24-44) % Monocytes % (Manual) (2-6) % Atypical Lymphocytes Tear Drop Cells Sodium (140-148) mmol/L Potassium (3.6-5.2) mmol/L Chloride (100-108) mmol/L Carbon Dioxide (21-32) mmol/L Anion Gap (5.0-14.0) mmol/L BUN (7-18) mg/dL Creatinine (0.8-1.3) mg/dL Est Cr Clr Drug Dosing mL/min Estimated GFR (MDRD) (>60) Glucose (74-106) mg/dL POC Glucose 117 H (74-106) mg/dL Calcium (8.5-10.1) mg/dL Blood Type Gel Antibody Screen Crossmatch Result Diagrams: 10/05/21 06:05 10/05/21 06:05 Tod Results Last 24 hrs: Microbiology 10/04/21 13:17 Stool Culture - Preliminary Stool / Feces NORMAL ENTERIC HUNTER 1 DAY Shiga Toxin I - Final NEGATIVE FOR SHIGA TOXIN 1 Shiga Toxin II - Final NEGATIVE FOR SHIGA TOXIN 2 REFERENCE RANGE: NEGATIVE Clostridioides difficile (PCR) - Final 10/03/21 15:10 Aerobic Blood Culture - Preliminary Blood - Arm, Right NO GROWTH AFTER 1 DAY Anaerobic Blood Culture - Preliminary NO GROWTH AFTER 1 DAY 10/03/21 15:00 Aerobic Blood Culture - Preliminary Blood - Arm, Right NO GROWTH AFTER 1 DAY Anaerobic Blood Culture - Preliminary NO GROWTH AFTER 1 DAY Sepsis Event Note - Evaluation Sepsis Screening Result: Possible Sepsis Risk - Focused Exam Vital Signs: Vital Signs Temp Pulse Resp BP Pulse Ox 10/05/21 08:07 37.2 C 76 16 125/63 98 10/05/21 02:15 37.3 C 86 18 107/53 L 98 10/04/21 23:26 36.7 C 86 18 107/53 L 98 - Problem List & Annotations (1) Neutropenic fever SNOMED Code(s): 808712686 Code(s): D70.9 - NEUTROPENIA, UNSPECIFIED; R50.81 - FEVER PRESENTING WITH CONDITIONS CLASSIFIED ELSEWHERE Status: Acute Priority: High Current Visit: Yes (2) Pancreatic malignant neoplasm SNOMED Code(s): 840012033 Code(s): C25.9 - MALIGNANT NEOPLASM OF PANCREAS, UNSPECIFIED Status: Acute Priority: High Current Visit: Yes Qualifiers: Pancreatic malignancy location: head of pancreas Qualified Code(s): C25.0 - Malignant neoplasm of head of pancreas (3) Pancytopenia due to chemotherapy SNOMED Code(s): 5247465, 455313736 Code(s): D61.810 - ANTINEOPLASTIC CHEMOTHERAPY INDUCED PANCYTOPENIA Status: Acute Priority: High Current Visit: Yes (4) Insulin dependent diabetes mellitus SNOMED Code(s): 80078059 Code(s): QQV7463 - Status: Chronic Current Visit: Yes - Problem List Review Problem List Initiated/Reviewed/Updated: Yes - My Orders Last 24 Hours: My Active Orders 10/04/21 09:00 Aspirin [Halfprin] 81 mg PO DAILY 10/04/21 10:45 Sodium Chloride 0.9% [Normal Saline] 1,000 ml IV ASDIRECTED 10/04/21 11:00 Insulin Lispro [HumaLOG] See Protocol SUBCUT QIDACANDBED 10/04/21 13:17 CLOS DIFFICILE PCR W/REFLEX [RM] Routine CULTURE STOOL + SHIGATOX [RM] Routine 10/05/21 06:27 PATIENT RETYPE [BBK] Routine RED BLOOD CELLS LP [BBK] Routine TYPE AND SCREEN [BBK] Routine 10/05/21 08:24 Transfuse Red Blood Cells [COMM] Routine 10/05/21 09:52 Potassium Chloride [Klor-Con M20] 40 meq PO ONETIME ONE 10/05/21 09:53 Convert IV to Saline Lock [OM.PC] Routine 10/05/21 11:30 GLUCOSE POC LAB TO COLLECT JPM [POC] QIDACANDBED 10/05/21 16:30 GLUCOSE POC LAB TO COLLECT JPM [POC] QIDACANDBED 10/05/21 21:00 GLUCOSE POC LAB TO COLLECT JPM [POC] QIDACANDBED 10/06/21 05:00 BASIC METABOLIC PANEL,BMP [CHEM] Timed CBC WITH AUTO DIFF [HEME] Timed 10/06/21 07:30 GLUCOSE POC LAB TO COLLECT JPM [POC] QIDACANDBED 10/06/21 11:30 GLUCOSE POC LAB TO COLLECT JPM [POC] QIDACANDBED 10/06/21 16:30 GLUCOSE POC LAB TO COLLECT JPM [POC] QIDACANDBED 10/06/21 21:00 GLUCOSE POC LAB TO COLLECT JPM [POC] QIDACANDBED 10/07/21 07:30 GLUCOSE POC LAB TO COLLECT JPM [POC] QIDACANDBED 10/07/21 11:30 GLUCOSE POC LAB TO COLLECT JPM [POC] QIDACANDBED 10/07/21 16:30 GLUCOSE POC LAB TO COLLECT JPM [POC] QIDACANDBED 10/07/21 21:00 GLUCOSE POC LAB TO COLLECT JPM [POC] QIDACANDBED 10/08/21 07:30 GLUCOSE POC LAB TO COLLECT JPM [POC] QIDACANDBED 10/08/21 11:30 GLUCOSE POC LAB TO COLLECT JPM [POC] QIDACANDBED 10/08/21 16:30 GLUCOSE POC LAB TO COLLECT JPM [POC] QIDACANDBED 10/08/21 21:00 GLUCOSE POC LAB TO COLLECT JPM [POC] QIDACANDBED 10/09/21 07:30 GLUCOSE POC LAB TO COLLECT JPM [POC] QIDACANDBED 10/09/21 11:30 GLUCOSE POC LAB TO COLLECT JPM [POC] QIDACANDBED 10/09/21 16:30 GLUCOSE POC LAB TO COLLECT JPM [POC] QIDACANDBED - Plan Plan:: ASSESSMENT AND PLAN - Neutropenic fever-most recent chemotherapy was 9 days NURSE INFECTION CONTROL. Most likely source of bacteremia would be gastrointestinal. Testing for C. difficile and stool pathogens negative. Steadily getting better. Absolute neutrophil count now greater than 500. -Cefepime and vancomycin, anticipate discharge home on ciprofloxacin if cultures are negative -Saline lock IV -Follow-up cultures -Symptomatic management of pain, nausea and diarrhea -Repeat white blood cell count with differential in the morning Pancreatic cancer-currently receiving chemotherapy with the goal of shrinking the mass enough so he can have surgery. -Outpatient follow-up after the hospital stay Insulin-dependent diabetes mellitus-he had hypoglycemia only minimal sliding scale insulin.the morning after admission so his long-acting insulin has been held. Receiving -Hold long-acting insulin -4 times daily Accu-Cheks -sliding scale Maintenance issues - -DVT prophylaxis-mechanical with thrombocytopenia -GI prophylaxis-not indicated -Nutrition-soft diet Disposition -I anticipate discharge home after the hospital stay Primary care physician - Dr Liza Nur M.D.
[2021-10-05] MEDS ORDERED: Potassium Chloride 20 MEQ Tab.ER PO ONE (10:30)
[2021-10-06] MEDS: Atropine/Diphenoxylate 0.025-2.5 MG Tab PO SCH ×3 (05:46→16:30)
[2021-10-06] MEDS: Cefepime 1 GM in Sodium Chloride 0.9% 50 ML IV SCH (05:54)
[2021-10-06] MEDS: Insulin Lispro 100 Unit/ML 3 ML KwikPen SUBCUT SCH ×2 (07:26→12:55)
[2021-10-06] MEDS: Dronabinol 2.5 MG Cap PO SCH ×2 (08:45→16:30)
[2021-10-06] MEDS: Amylase/Lipase/Protease 12,000 Unit Cap.CR PO SCH ×3 (08:45→16:30)
[2021-10-06] MEDS: Aspirin 81 MG Tab.EC PO SCH (08:45)
[2021-10-06] MEDS: Lactobacillus Rhamnosus GG (Probiotic) Cap PO SCH (08:45)
[2021-10-06 10:55] VITALS: BP 115/58
[2021-10-06 11:51] VITALS: PULSE 65
--- NOTE | 2021-10-06 15:55 | PCM.DCSUM1 ---
Discharge Summary - Hospital Course Brief History: Mr. Shin is a 76-year-old gentleman who was admitted through the emergency department with weakness and fever with absolute neutropenia, secondary to recent chemotherapy for pancreatic carcinoma. - Discharge Data Discharge Date: 10/06/21 Discharge Disposition: Home, Self-Care 01 Condition: Good - Referral to Home Health Primary Care Physician: PCP Not In Area - Discharge Diagnosis/Problem(s) (1) Neutropenic fever SNOMED Code(s): 751945442 ICD Code: D70.9 - NEUTROPENIA, UNSPECIFIED; R50.81 - FEVER PRESENTING WITH CONDITIONS CLASSIFIED ELSEWHERE Status: Acute Priority: High Current Visit: Yes (2) Pancreatic malignant neoplasm SNOMED Code(s): 751951017 ICD Code: C25.9 - MALIGNANT NEOPLASM OF PANCREAS, UNSPECIFIED Status: Acute Priority: High Current Visit: Yes Qualifiers: Pancreatic malignancy location: head of pancreas Qualified Code(s): C25.0 - Malignant neoplasm of head of pancreas (3) Pancytopenia due to chemotherapy SNOMED Code(s): 4045073, 808560428 ICD Code: D61.810 - ANTINEOPLASTIC CHEMOTHERAPY INDUCED PANCYTOPENIA Status: Acute Priority: High Current Visit: Yes (4) Insulin dependent diabetes mellitus SNOMED Code(s): 69612537 ICD Code: [id number] - Status: Chronic Current Visit: Yes (5) Neutropenia SNOMED Code(s): 175299684 ICD Code: D70.9 - NEUTROPENIA, UNSPECIFIED Status: Acute Current Visit: Yes - Patient Summary/Data Consults: Consultations 10/06/21 10:41 PT Evaluation and Treatment [CONS] Routine Please Evaluate and Treat. PT Reason for Consult: weakness Pending Discharge: home This query below is only for informational purposes and is not editable. Admission Diagnosis/Problem: Neutropenia Hospital Course: Mr. Shin presented initially to the infusion center with concerns about dehydration. He was sent to the emergency room for evaluation after a fever was noted. He reports that he last had chemotherapy for his pancreatic cancer about 9 days ago. Usually after chemotherapy he has difficulty with increased fatigue, poor appetite and some diarrhea. The first few days were as expected but over the last 3 to 4 days he has had increasing fatigue and has been sleeping most of the day. His appetite has been worse than usual. He does get mild achy abdominal pain after he eats. He does not have pain if he does not eat. Work-up in the emergency room revealed severe neutropenia. Chest x-ray was clear and urinalysis was clear. He has received broad-spectrum antibiotics. He was admitted for management of neutropenic fever. Blood cultures and stool cultures were obtained both of which were negative throughout his hospitalization. There was slow improvement in his blood counts during hospitalization and by the time of discharge, total white blood cell count was up to 5200 and the absolute neutropenia had resolved. Hemoglobin was low during hospitalization and he was transfused 1 unit of red blood cells, hemoglobin at the time of discharge was up to 8.0. Platelet count also improved to 42,000 by the time of discharge. He had no further fevers and his diarrhea had essentially resolved by the time of discharge. He remained on broad-spectrum antibiotic therapy through hospitalization and will be discharged home on ciprofloxacin twice daily for an additional 4 days. Activity will be as tolerated and he will resume his usual diet. Follow-up with oncology will be scheduled and he will have a CBC with differential on October 10. - Patient Instructions Diet: Usual Diet as Tolerated Activity: As Tolerated Other/Special Instructions: Please obtain CBC on October 10 and have sent to his oncologist. Follow-up with oncology. Hold aspirin until platelet count is greater than 80,000 - Discharge Plan *PRESCRIPTION DRUG MONITORING PROGRAM REVIEWED*: Not Applicable *COPY OF PRESCRIPTION DRUG MONITORING REPORT IN PATIENT OSKAR: Not Applicable Prescriptions/Med Rec: Ciprofloxacin [Ciprofloxacin HCl] 500 mg PO BID #8 tablet Home Medications: Home Meds Cholecalciferol (Vitamin D3) [Vitamin D3] 2,000 unit PO DAILY 07/17/17 [History] Hydrochlorothiazide 25 mg PO DAILY 07/17/17 [History] Irbesartan [Avapro] 300 mg PO DAILY 07/17/17 [History] Pravastatin [Pravachol] 40 mg PO DAILY 07/17/17 [History] Amylase/Lipase/Protease [Servando TORREZ 24,000 Unit] 3 tab PO TIDAC 10/03/21 [History] Diphenoxylate HCl/Atropine [Lomotil] 1 tab PO QID 10/03/21 [History] Insulin Detemir [Levemir Flextouch] 15 units SUBCUT DAILY 10/03/21 [History] Loperamide [Imodium] 2 mg PO Q4H PRN 10/03/21 [History] Potassium Chloride [Klor-Con M20] 20 meq PO DAILY 10/03/21 [History] dronabinoL [Dronabinol] 5 mg PO BIDAC 10/03/21 [History] Ciprofloxacin [Ciprofloxacin HCl] 500 mg PO BID #8 tablet 10/06/21 [Rx] Patient Handouts: Fall Prevention in the Home, Adult, [id number], Neutropenic Fever Referrals: PCP,Not In Area [Primary Care Provider] - - Discharge Summary/Plan Comment DC Time >30 min.: No Total # of Minutes for Discharge Time: 20 - Patient Data Vitals - Most Recent: Last Vital Signs Temp 98.1 F 10/06/21 10:54 Pulse 65 10/06/21 11:37 Resp 15 10/06/21 10:54 BP 115/58 L 10/06/21 10:54 Pulse Ox 98 10/06/21 10:54 Weight - Most Recent: 154 lb 8 oz I&O - Last 24 hours: Intake & Output 10/06/21 10/06/21 10/06/21 06:59 14:59 22:59 Intake Total 300 440 Balance 300 440 Lab Results - Last 24 hrs: Laboratory Results - last 24 hr 10/05/21 10/05/21 10/06/21 Range/Units 16:20 21:17 04:10 WBC 5.2 (4.5-11.0) K/uL RBC 2.76 L (4.30-5.90) M/uL Hgb 8.0 L (12.0-15.0) g/dL Hct 24.8 L (40.0-54.0) % MCV 90 (80-98) fL MCH 29 (27-31) pg MCHC 32 (32-36) % Plt Count 42 L (150-400) K/uL Add Manual Diff Yes Neutrophils % (Manual) 51 (36-66) % Band Neutrophils % 9 (5-11) % Lymphocytes % (Manual) 28 (24-44) % Monocytes % (Manual) 10 H (2-6) % Eosinophils % (Manual) 2 (2-4) % Ovalocytes Few Sodium (140-148) mmol/L Potassium (3.6-5.2) mmol/L Chloride (100-108) mmol/L Carbon Dioxide (21-32) mmol/L Anion Gap (5.0-14.0) mmol/L BUN (7-18) mg/dL Creatinine (0.8-1.3) mg/dL Est Cr Clr Drug Dosing mL/min Estimated GFR (MDRD) (>60) Glucose (74-106) mg/dL POC Glucose 139 H 163 H (74-106) mg/dL Calcium (8.5-10.1) mg/dL 10/06/21 10/06/21 10/06/21 Range/Units 04:10 07:21 11:22 WBC (4.5-11.0) K/uL RBC (4.30-5.90) M/uL Hgb (12.0-15.0) g/dL Hct (40.0-54.0) % MCV (80-98) fL MCH (27-31) pg MCHC (32-36) % Plt Count (150-400) K/uL Add Manual Diff Neutrophils % (Manual) (36-66) % Band Neutrophils % (5-11) % Lymphocytes % (Manual) (24-44) % Monocytes % (Manual) (2-6) % Eosinophils % (Manual) (2-4) % Ovalocytes Sodium 137 L (140-148) mmol/L Potassium 3.5 L (3.6-5.2) mmol/L Chloride 107 (100-108) mmol/L Carbon Dioxide 24 (21-32) mmol/L Anion Gap 9.5 (5.0-14.0) mmol/L BUN 7 (7-18) mg/dL Creatinine 0.7 L (0.8-1.3) mg/dL Est Cr Clr Drug Dosing 91.77 mL/min Estimated GFR (MDRD) > 60 (>60) Glucose 172 H (74-106) mg/dL POC Glucose 129 H 152 H (74-106) mg/dL Calcium 7.8 L (8.5-10.1) mg/dL ANGEL Results - Last 24 hrs: Microbiology 10/03/21 15:10 Aerobic Blood Culture - Preliminary Blood - Arm, Right NO GROWTH AFTER 3 DAYS Anaerobic Blood Culture - Preliminary NO GROWTH AFTER 3 DAYS 10/03/21 15:00 Aerobic Blood Culture - Preliminary Blood - Arm, Right NO GROWTH AFTER 3 DAYS Anaerobic Blood Culture - Preliminary NO GROWTH AFTER 3 DAYS 10/04/21 13:17 Stool Culture - Preliminary Stool / Feces NORMAL ENTERIC HUNTER 2 DAYS Shiga Toxin I - Final NEGATIVE FOR SHIGA TOXIN 1 Shiga Toxin II - Final NEGATIVE FOR SHIGA TOXIN 2 REFERENCE RANGE: NEGATIVE Clostridioides difficile (PCR) - Final Med Orders - Current: Current Medications Acetaminophen (Acetaminophen 325 Mg Tab) 650 mg PO Q4H PRN PRN Reason: Pain (Mild 1-3)/fever Last Admin: 10/03/21 19:52 Dose: 650 mg Documented by: Lipase/Protease/Amylase (Amylase/Lipase/Protease 12,000 Unit Cap.Cr) 6 cap PO TIDAC [facility] Last Admin: 10/06/21 12:56 Dose: 6 cap Documented by: Aspirin (Aspirin 81 Mg Tab.Ec) 81 mg PO DAILY [facility] Last Admin: 10/06/21 08:45 Dose: 81 mg Documented by: Ciprofloxacin (Ciprofloxacin 500 Mg Tab) 500 mg PO BID [facility] Diphenoxylate HCl/Atropine (Atropine/Diphenoxylate 0.025-2.5 Mg Tab) 1 tab PO QID [facility] Last Admin: 10/06/21 10:30 Dose: 1 tab Documented by: Dronabinol (Dronabinol 2.5 Mg Cap) 5 mg PO BIDAC [facility] Last Admin: 10/06/21 08:45 Dose: 5 mg Documented by: Heparin Sodium (Porcine) (Heparin Sodium 100 Units/Ml 5 Ml Syringe) 500 units FLUSH ASDIRECTED PRN PRN Reason: IV Use Insulin Human Lispro (Insulin Lispro 100 Unit/Ml 3 Ml Kwikpen) 0 unit SUBCUT QIDACANDBED [facility]; Protocol Last Admin: 10/06/21 12:55 Dose: 1 unit Documented by: Lactobacillus Rhamnosus (Lactobacillus Rhamnosus Gg (Probiotic) Cap) 1 cap PO BID [facility] Last Admin: 10/06/21 08:45 Dose: 1 cap Documented by: Loperamide HCl (Loperamide 2 Mg Cap) 2 mg PO Q4H PRN PRN Reason: Diarrhea Last Admin: 10/05/21 16:27 Dose: 2 mg Documented by: Lorazepam (Lorazepam 2 Mg/Ml Sdv) 0.5 mg IVPUSH Q4H PRN PRN Reason: Nausea/Vomiting Morphine Sulfate (Morphine 2 Mg/Ml Syringe) 2 mg IVPUSH Q2H PRN PRN Reason: Pain (severe 7-10) Ondansetron HCl (Ondansetron 4 Mg/2 Ml Sdv) 4 mg IV Q6H PRN PRN Reason: Nausea/Vomiting Ondansetron HCl (Ondansetron 4 Mg Tab.Dis) 4 mg PO Q6H PRN PRN Reason: Nausea able to take PO Oxycodone HCl (Oxycodone 5 Mg Tab) 5 - 10 mg PO Q4H PRN PRN Reason: Pain Prochlorperazine Maleate (Prochlorperazine 10 Mg Tab) 10 mg PO Q6H PRN PRN Reason: Nausea/Vomiting Sodium Chloride (Sodium Chloride 0.9% 10 Ml Syringe) 10 ml FLUSH ASDIRECTED PRN PRN Reason: Keep Vein Open Discontinued Medications Vancomycin HCl 1 gm/ Sodium (Chloride) 250 mls @ 167 mls/hr IV STAT ONE Stop: 10/03/21 16:08 Last Admin: 10/03/21 15:20 Dose: 167 mls/hr Documented by: Ceftriaxone Sodium 1 gm/ (Sodium Chloride) 50 mls @ 100 mls/hr IV STAT ONE Stop: 10/03/21 15:08 Last Admin: 10/03/21 16:59 Dose: 100 mls/hr Documented by: Sodium Chloride (Normal Saline) 1,000 mls @ 999 mls/hr IV BOLUS ONE; Protocol Stop: 10/03/21 15:39 Last Admin: 10/03/21 15:22 Dose: 999 mls/hr Documented by: Sodium Chloride (Normal Saline) 1,000 mls @ 125 mls/hr IV ASDIRECTED [facility] Last Admin: 10/04/21 05:59 Dose: 125 mls/hr Documented by: Cefepime HCl 1 gm/ Sodium (Chloride) 50 mls @ 100 mls/hr IV Q8H [facility] Last Admin: 10/06/21 05:54 Dose: 100 mls/hr Documented by: Vancomycin HCl 1 gm/ Sodium (Chloride) 250 mls @ 150 mls/hr IV Q12H [facility] Last Admin: 10/06/21 04:34 Dose: 150 mls/hr Documented by: Potassium Chloride 20 meq/ (Premix) 100 mls @ 50 mls/hr IV Q2H [facility] Stop: 10/04/21 12:59 Last Admin: 10/04/21 11:32 Dose: 50 mls/hr Documented by: Sodium Chloride (Normal Saline) 1,000 mls @ 50 mls/hr IV ASDIRECTED [facility] Last Admin: 10/04/21 20:58 Dose: 50 mls/hr Documented by: Insulin Glargine (Insulin Glargine,Human Rec. Analog 100 Units/Ml 3 Ml Pen) 15 units SUBCUT DAILY [facility] Potassium Chloride (Potassium Chloride 20 Meq Tab.Er) 20 meq PO ONETIME ONE Stop: 10/04/21 09:01 Last Admin: 10/04/21 09:30 Dose: 20 meq Documented by: Potassium Chloride (Potassium Chloride 20 Meq Tab.Er) 40 meq PO ONETIME ONE Stop: 10/05/21 10:31 Last Admin: 10/05/21 10:28 Dose: 40 meq Documented by: - Exam General: Reports: Alert, Oriented, Cooperative, Mild Distress Lungs: Reports: Clear to Auscultation, Normal Respiratory Effort Cardiovascular: Reports: Regular Rate, Regular Rhythm, No Murmurs GI/Abdominal Exam: Soft, Non-Tender, No Organomegaly, No Distention Extremities: Non-Tender, No Pedal Edema *Q Meaningful Use (DIS) - VTE *Q VTE Pharmacological Contraindications *Q: Thrombocytopenia
[2021-10-06] MEDS ORDERED: Ciprofloxacin 500 MG Tab PO SCH (21:00)
== END 2021-10-06 16:50 | disposition home or self-care (01) | DRG 809 ==
LOC: JP.ED 13:31 → JP.MS 18:28
PROVIDERS: ADMIT Internal Medicine; ATTEND Hospitalist
DX: D70.9 Neutropenia, unspecified (principal); C25.9 Malignant neoplasm of pancreas, unspecified; C25.0 Malignant neoplasm of head of pancreas; D61.810 Antineoplastic chemotherapy induced pancytopenia; R50.81 Fever presenting with conditions classified elsewhere; Z86.74 Personal history of sudden cardiac arrest; T45.1X5A Adverse effect of antineoplastic and immunosuppressive drugs, initial encounter; E78.00 Pure hypercholesterolemia, unspecified; I10 Essential (primary) hypertension; E11.9 Type 2 diabetes mellitus without complications; M54.9 Dorsalgia, unspecified; G89.29 Other chronic pain; Z66 Do not resuscitate; Z20.822 Contact with and (suspected) exposure to COVID-19; Z88.8 Allergy status to other drugs, medicaments and biological substances; Z79.82 Long term (current) use of aspirin; Z79.899 Other long term (current) drug therapy; Z87.891 Personal history of nicotine dependence
CPT/HCPCS: 0241U; 36415; 36430; 71045; 80048; 80053; 81001; 82947; 83605; 85025; 86140; 86850; 86900; 86901; 86920; 86922; 87040; 87046; 87493; 87899; 93005; 96365; 96367; 97162; 99285; A9270-GY; J0692; J0696; J1642; J1815; J1815-GY; J3370; J3480; J7030; J7050; P9016

== ENCOUNTER 2022-02-10 06:47 | Emergency (ER) | payer MEDICARE, BC ==
[2022-02-10] MEDS ORDERED: Meropenem 1 GM in Sodium Chloride 0.9% 100 ML IV SCH (07:30)
[2022-02-10] MEDS ORDERED: Lactated Ringers 1,000 ML IV SCH (07:30)
[2022-02-10] MEDS ORDERED: Lactated Ringers 1,000 ML IV ONE (08:41)
[2022-02-10] MEDS ORDERED: Norepinephrine Bit/D5W Premix 4 MG in Premix Bag 1 BAG IV SCH (08:45)
[2022-02-10 09:04] VITALS: PULSE 115
[2022-02-10] MEDS ORDERED: diphenhydrAMINE 50 MG/ML SDV IVPUSH ONE (09:06)
[2022-02-10] MEDS ORDERED: Iopamidol 612 MG/ML 100 ML Bottle IV PRN (09:22)
[2022-02-10] MEDS ORDERED: Sodium Chloride 0.9% 100 ML IV SCH (09:30)
[2022-02-10 09:33] LABS: CORONAVIRUS COVID-19 NAA NEGATIVE (NEGATIVE)
[2022-02-10 10:34] VITALS: BP 118/57
== END 2022-02-10 10:51 ==
LOC: JP.ED 06:47
DX: A41.9 Sepsis, unspecified organism (principal); I95.9 Hypotension, unspecified; R00.0 Tachycardia, unspecified; I10 Essential (primary) hypertension; E11.9 Type 2 diabetes mellitus without complications; Z20.822 Contact with and (suspected) exposure to COVID-19; Z91.041 Radiographic dye allergy status; Z88.8 Allergy status to other drugs, medicaments and biological substances
CPT/HCPCS: 0241U; 36415; 36430; 71045; 71045-26; 74177; 74177-26; 80053; 83605; 84145; 84484; 85025; 86140; 86850; 86900; 86901; 86920; 86922; 87040; 87077; 87186; 93005; 93010; 96365; 96366; 96367; 96368; 96375; 99285; 99285-25; J1200; J2185; J3370; J3490; J7050; J7120; P9016; Q9967

== ENCOUNTER 2022-05-30 08:02 | Emergency (ER) | payer MEDICARE, BC ==
[2022-05-30] MEDS ORDERED: Sodium Chloride 0.9% 10 ML Syringe FLUSH PRN (09:05)
[2022-05-30] MEDS ORDERED: Acetaminophen 325 MG Tab PO ONE (09:05)
[2022-05-30] MEDS ORDERED: Ibuprofen 600 MG Tab PO ONE (09:26)
[2022-05-30 09:32] LABS: ESTIMATED GFR 70 mL/min (>60)
[2022-05-30 10:19] VITALS: PULSE 110
[2022-05-30] MEDS ORDERED: diphenhydrAMINE 50 MG/ML SDV IVPUSH ONE (10:22)
[2022-05-30] MEDS ORDERED: methylPREDNISolone Sodium Succinate 125 MG/2 ML SDV IVPUSH ONE (10:22)
[2022-05-30] MEDS ORDERED: 50% Dextrose in Water 50 ML Syringe IVPUSH PRN (10:23)
[2022-05-30] MEDS ORDERED: Sodium Chloride 0.9% 1,000 ML IV ONE (10:23)
[2022-05-30] MEDS ORDERED: Glucagon,Human Recombinant 1 MG Vial IM PRN (10:23)
[2022-05-30] MEDS ORDERED: Insulin NPH HUM/REG Insulin HM 100 UNIT/ML 3 ML Vial SQ ONE (10:23)
[2022-05-30] MEDS ORDERED: Piperacillin/Tazobactam 3.375 GM in Sodium Chloride 0.9% 50 ML IV SCH (10:30)
[2022-05-30] MEDS ORDERED: Iopamidol 612 MG/ML 100 ML Bottle IV PRN (11:18)
[2022-05-30] MEDS ORDERED: Sodium Chloride 0.9% 100 ML IV SCH (11:30)
[2022-05-30] MEDS ORDERED: VANCOMYCIN IV ONE ×2 (12:55→14:00)
[2022-05-30] MEDS ORDERED: SODIUM CHLORIDE 0.9% IV ONE ×2 (12:55→14:00)
[2022-05-30 16:24] VITALS: BP 115/68
== END 2022-05-30 16:24 ==
LOC: JP.ED 08:02
DX: K75.0 Abscess of liver (principal); E86.0 Dehydration; E87.1 Hypo-osmolality and hyponatremia; R74.01 Elevation of levels of liver transaminase levels; D61.810 Antineoplastic chemotherapy induced pancytopenia; C25.0 Malignant neoplasm of head of pancreas; I10 Essential (primary) hypertension; E11.9 Type 2 diabetes mellitus without complications; Z20.822 Contact with and (suspected) exposure to COVID-19; Z91.041 Radiographic dye allergy status; Z88.8 Allergy status to other drugs, medicaments and biological substances; Z79.899 Other long term (current) drug therapy; Z79.4 Long term (current) use of insulin
CPT/HCPCS: 36415; 71045; 71260; 74177; 80053; 81001; 82150; 82947; 83605; 83690; 83735; 85025; 85651; 86140; 87040; 87077; 87186; 87804; 96365; 96367; 96375; 99285; A9270; J1200; J1815; J2543; J2930; J3370; J3490; J7030; J7050; Q9967; U0002; 99284

== ENCOUNTER 2022-08-08 00:02 | Emergency (ER) | payer MEDICARE, BC ==
[2022-09-03 07:07] LABS: ESTIMATED GFR 92 mL/min (>60)
== END 2022-08-08 03:00 | disposition home or self-care (01) ==
LOC: JP.ED 00:02
DX: A41.9 Sepsis, unspecified organism (principal); K75.0 Abscess of liver; C78.89 Secondary malignant neoplasm of other digestive organs; E11.9 Type 2 diabetes mellitus without complications; I10 Essential (primary) hypertension; Z87.891 Personal history of nicotine dependence; Z20.822 Contact with and (suspected) exposure to COVID-19
CPT/HCPCS: 36415; 80053; 83690; 85025; 86140; 87040; 99284; U0002

== ENCOUNTER 2022-10-13 08:33 | Emergency (ER) | payer MEDICARE, BC ==
[2022-10-13 09:34] LABS: ESTIMATED GFR 70 mL/min (>60)
[2022-10-13 09:52] LABS: CORONAVIRUS COVID-19 NAA NEGATIVE (NEGATIVE)
[2022-10-13] MEDS ORDERED: Ertapenem 1 GM in Sodium Chloride 0.9% 50 ML IV ONE (10:05)
[2022-10-13] MEDS ORDERED: Sodium Chloride 0.9% 1,000 ML IV ONE (10:49)
[2022-10-13] MEDS ORDERED: diphenhydrAMINE 50 MG/ML SDV IVPUSH ONE (11:34)
[2022-10-13] MEDS ORDERED: methylPREDNISolone Sodium Succinate 125 MG/2 ML SDV IVPUSH ONE (11:34)
[2022-10-13] MEDS ORDERED: Sodium Chloride 0.9% 10 ML Syringe FLUSH PRN (12:33)
[2022-10-13] MEDS ORDERED: Iopamidol 612 MG/ML 100 ML Bottle IV PRN (12:33)
[2022-10-13] MEDS ORDERED: Sodium Chloride 0.9% 50 ML IV SCH (12:45)
[2022-10-13 14:23] VITALS: BP 106/58; PULSE 78
== END 2022-10-13 15:02 | disposition home or self-care (01) ==
LOC: JP.ED 08:33
DX: R53.1 Weakness (principal); R19.00 Intra-abdominal and pelvic swelling, mass and lump, unspecified site; C25.0 Malignant neoplasm of head of pancreas; E78.00 Pure hypercholesterolemia, unspecified; I10 Essential (primary) hypertension; E11.9 Type 2 diabetes mellitus without complications; Z91.041 Radiographic dye allergy status; Z88.8 Allergy status to other drugs, medicaments and biological substances; Z79.899 Other long term (current) drug therapy; Z79.4 Long term (current) use of insulin; Z79.82 Long term (current) use of aspirin; Z87.891 Personal history of nicotine dependence; Z20.822 Contact with and (suspected) exposure to COVID-19
CPT/HCPCS: 0241U; 36415; 71260; 74177; 80053; 83605; 84145; 85025; 86140; 96361; 96374; 96375; 99284; J1200; J1335; J2930; J7030

== ENCOUNTER 2022-10-16 17:55 | Emergency (ER) | payer MEDICARE, BC ==
[2022-10-16] MEDS ORDERED: Sodium Chloride 0.9% 1,000 ML IV SCH (18:45)
[2022-10-16 19:32] LABS: ESTIMATED GFR 92 mL/min (>60)
[2022-10-16] MEDS ORDERED: 50% Dextrose in Water 50 ML Syringe IVPUSH ONE (21:04)
[2022-10-16] MEDS ORDERED: Dextrose 5%-0.45% NaCl 1,000 ML IV SCH (21:15)
[2022-10-16 21:40] VITALS: BP 101/49; PULSE 61
== END 2022-10-17 00:26 ==
LOC: JP.ED 17:55
DX: A41.9 Sepsis, unspecified organism (principal); C25.0 Malignant neoplasm of head of pancreas; E86.0 Dehydration; E11.649 Type 2 diabetes mellitus with hypoglycemia without coma; E78.00 Pure hypercholesterolemia, unspecified; I10 Essential (primary) hypertension; Z91.041 Radiographic dye allergy status; Z88.8 Allergy status to other drugs, medicaments and biological substances; Z79.82 Long term (current) use of aspirin; Z79.4 Long term (current) use of insulin; Z79.899 Other long term (current) drug therapy
CPT/HCPCS: 36415; 71045; 80053; 81001; 82947; 83605; 85025; 86140; 87040; 96361; 96374; 99285; J7030; J7042